=== PATIENT | female | born 1970 ===

== ENCOUNTER → 2019-12-06 10:59 | Outpatient (BNVA) | payer MEDICAID, SELFPAY | PROVIDERS: PCP Nurse Practitioner Family; Visit Provider Advanced Practice Midwife | DX: Z30.42 Encounter for surveillance of injectable contraceptive (principal) | CPT/HCPCS: 96372; 99211 ==

== ENCOUNTER 2020-02-24 17:39 | Emergency (ER) | payer MEDICAID, SELFPAY ==
[2020-02-24 18:55] VITALS: BP 155/79; PULSE 90; RESP 16; TEMP 36.8; O2SAT 100; BMI 30.2
[2020-02-24 19:11] LABS: Basophils Absolute Auto 0.1 X10*3/uL (0.0-0.2); Basophils Percent Auto 0.6 % (0-2); Eosinophils Absolute Auto 0.4 X10*3/uL (0.0-0.4); Eosinophils Percent Auto 4.4 % (0-4); Hematocrit 38.2 % (37-47); Hemoglobin 12.6 g/dl (12.0-16.0); Imm Gran Abs Auto 0.02 X10*3/uL (0.00-0.03); Imm Gran Pct Auto 0.3 % (0.0-0.4); Lymphocytes Percent Auto 25.1 % (20-40); Mean Corpuscular Hemoglobin 29.6 pg (27.0-33.0); Mean Corpuscular Volume 89.9 fL (80-98); Mean Platelet Volume 11.3 fL (9.4-12.3); Monocytes Absolute Auto 0.8 X10*3/uL (0.1-1.2); Monocytes Percent Auto 9.5 % (2-11); Neutrophils Absolute Auto 4.7 X10*3/uL (2.0-8.3); Neutrophils Percent Auto 60.1 % (45-73); Platelet Count 297 X10*3/uL (160-400); Red Blood Count 4.25 X10*6/uL (4.20-5.50); Red Cell Distribution Width 14.3 % (11.0-16.0); White Blood Count 7.9 X10*3/uL (4.8-10.8)
[2020-02-24 19:14] LABS: MANUAL DIFF FLAG NO
[2020-02-24 19:28] LABS: Glucose Urine UA NEG (NEG); Leukocyte Esterase Urine NEG (NEG); Nitrite Urine NEG (NEG); PH 5.5 (5.0-8.0); Specific Gravity - Urine >= 1.030 (1.005-1.025); Urine Blood NEG (NEG); Urine Ketones NEG (NEG); Urine Protein NEG (NEG-TRACE)
[2020-02-24 19:30] LABS: Appearance Urine CLEAR; Color Urine YELLOW
[2020-02-24 19:46] LABS: Alanine Aminotransferase 54 U/L (0-31); Albumin Level 4.3 g/dL (3.5-5.0); Alkaline Phosphatase 59 U/L (39-117); Anion Gap 11 (12-20); Aspartate Amino Transferase 28 U/L (5-31); Bilirubin Direct < 0.2 mg/dL (0.0-0.5); Bilirubin Total 0.2 mg/dL (0.0-1.0); Blood Urea Nitrogen 13 mg/dL (9-16); Calcium 8.9 mg/dL (8.4-10.2); Carbon Dioxide 26 mmol/L (22-29); Chloride 106 mmol/L (96-108); Estimated Glomerular Filt Rate > 60; Glucose Random 101 mg/dL (60-115); Lipase 23 U/L (8-78); Potassium 3.7 mmol/l (3.3-5.1); Sodium 139 mmol/L (135-145); Total Protein 7.5 g/dL (6.5-8.0)
--- NOTE | 2020-02-25 03:15 | ED.ABDPAIN ---
HPI - Abdominal Pain General Chief Complaint: Abdominal Pain Stated Complaint: Abdominal Pain Time Seen by Provider: 02/25/20 03:14 Source: patient Mode of arrival: ambulatory History of Present Illness HPI narrative: This is a 49-year-old female who states that she has been having epigastric discomfort that radiates into her chest and into her back for approximately 2 weeks and her physician has taken her off of ibuprofen/Motrin. She describes the pain as burning and is associated with nausea. She states that she recently stopped drinking soda and is taking omeprazole twice daily, but continues to take Naprosyn regularly. Related Data Allergies Allergy/AdvReac Type Severity Reaction Status Date / Time SEAFOOD Allergy Severe RASH, Uncoded 11/07/19 15:52 EPIPEN FISH Allergy Unknown anaphylaxis Uncoded 02/14/19 00:00 fish Allergy Unknown anaphylaxis Uncoded 01/15/19 00:00 Review of Systems Review of Systems Pertinent positives and negatives as stated in HPI 10 point review of systems otherwise negative. Physical Exam Vital Signs: Vital Signs: Last Vital Signs Temp 98.2 F 02/24/20 18:55 Pulse 90 02/24/20 18:55 Resp 16 02/24/20 18:55 BP 155/79 H 02/24/20 18:55 Pulse Ox 100 02/24/20 18:55 Body Mass Index 30.2 VITAL SIGNS: Reviewed. GENERAL: Well developed, well nourished, in no acute distress. NOSE: Nares patent bilateral OROPHARYNX: no oral lesions noted, posterior pharynx clear and non-erythematous without noted tonsillar enlargement/erythema/exudates NECK: Supple, no adenopathy LUNGS: Normal breath sounds. No adventitious sounds or accessory muscle use. SpO2<100> CARDIOVASCULAR: Regular rate and rhythm without noted murmurs, no JVD or lower extremity edema. ABDOMEN: Soft, mild tenderness and epigastrium without rebound, non-distended with bowel sounds. No rigidity. No guarding. No palpable masses or hernias noted NEUROLOGIC: Alert and oriented x 4. Course Course Course Narrative: This is a 49-year-old female with history and clinical presentation most consistent with gastritis and suspect underlying PUD or possible H pylori infection. There is no evidence pneumonia or cardiac etiologies. Of all investigations there is no evidence of infection, anemia, pancreatitis, or hepatobiliary disease. Patient was provided with a GI cocktail and endorses subjective improvement in discomfort. She was informed of all findings and will be discharged home in stable condition with a referral for GI. MDM - Abdominal Pain Lab Data Result diagrams: 02/24/20 19:04 02/24/20 19:04 Labs: Lab Results 02/24/20 02/24/20 02/24/20 Range/Units 19:04 19:04 19:16 WBC 7.9 (4.8-10.8) X10*3/uL RBC 4.25 (4.20-5.50) X10*6/uL Hgb 12.6 (12.0-16.0) g/dl Hct 38.2 (37-47) % MCV 89.9 (80-98) fL MCH 29.6 (27.0-33.0) pg MCHC 33.0 (31.0-35.0) g/dl RDW 14.3 (11.0-16.0) % Plt Count 297 (160-400) X10*3/uL MPV 11.3 (9.4-12.3) fL Immature Gran % (Auto) 0.3 (0.0-0.4) % Neut % (Auto) 60.1 (45-73) % Lymph % (Auto) 25.1 (20-40) % [place] % (Auto) 9.5 (2-11) % Eos % (Auto) 4.4 H (0-4) % Baso % (Auto) 0.6 (0-2) % Lymph # (Auto) 2.0 (1.2-4.9) X10*3/uL [place] # (Auto) 0.8 (0.1-1.2) X10*3/uL Eos # (Auto) 0.4 (0.0-0.4) X10*3/uL Baso # (Auto) 0.1 (0.0-0.2) X10*3/uL Abs Immat Gran (auto) 0.02 (0.00-0.03) X10*3/uL Absolute Neuts (auto) 4.7 (2.0-8.3) X10*3/uL Absolute Nucleated RBC 0.000 (0.0-0.012) X10*3/uL Nucleated RBC % (auto) 0.0 (0.0-0.2) /100WBC Sodium 139 (135-145) mmol/L Potassium 3.7 (3.3-5.1) mmol/l Chloride 106 (96-108) mmol/L Carbon Dioxide 26 (22-29) mmol/L Anion Gap 11 L (12-20) BUN 13 (9-16) mg/dL Creatinine 0.74 (0.5-1.4) mg/dL Estim Creat Clear Calc 87.0 Estimated GFR > 60 Random Glucose 101 (60-115) mg/dL Calcium 8.9 (8.4-10.2) mg/dL Total Bilirubin 0.2 (0.0-1.0) mg/dL Direct Bilirubin < 0.2 (0.0-0.5) mg/dL AST 28 (5-31) U/L ALT 54 H (0-31) U/L Alkaline Phosphatase 59 (39-117) U/L Total Protein 7.5 (6.5-8.0) g/dL Albumin 4.3 (3.5-5.0) g/dL Lipase 23 (8-78) U/L Urine Color YELLOW Urine Appearance CLEAR Urine pH 5.5 (5.0-8.0) Ur Specific [place] >= 1.030 H (1.005-1.025) Urine Protein NEG (NEG-TRACE) MG/DL Urine Glucose (UA) NEG (NEG) MG/DL Urine Ketones NEG (NEG) MG/DL Urine Blood NEG (NEG) Urine Nitrite NEG (NEG) Ur Leukocyte Esterase NEG (NEG) Discharge Plan Discharge Clinical Impression: Gastritis Qualifiers: Gastritis type: other gastritis Chronicity: chronic Gastritis bleeding: without bleeding Qualified Code(s): K29.50 - Unspecified chronic gastritis without bleeding Patient Disposition: Home, Self-Care Instructions: Gastritis (ED), Diet for Stomach Ulcers and Gastritis (ED) Additional Instructions: 1. Evite toda la cafe?na y las bebidas carbonatadas, deje de jj Naprosyn / ibuprofen / Motrin / Aleve. 2. Juanjose un seguimiento llamando a la oficina del especialista para evaluar bajwa condici?n estomacal david 4 a?os m?s. 3. Contin?e tomando omeprazol seg?n lo prescrito. 4. Contin?e tomando Mylanta de venta keshia amanuel se indica en el empaque externo antes de cada comida. 5. Juanjose un seguimiento con bajwa proveedor de atenci?n primaria. Referrals: Jordyn Mary NP [Primary Care Provider] - 2 days (Re-eval for Gastritis versus PUD) Jessica Barrera MD [Physician] - 2 days (Please evaluate for minimal improvement on twice daily omeprazole.) Print Language: Sammarinese [facility] Past Medical History Source: nursing notes reviewed Medical History GERD (gastroesophageal reflux disease) Social History Social History Advance Directives: No
[2020-02-25] MEDS: Magnesium Hydrox/Alum Hydrox 30 ML ORAL.SUSP PO (04:26)
[2020-02-25] MEDS: Lidocaine HCl Viscous 2 % 15 ML SOLUTION 10 ML MUCOUS MEM (04:26)
== END 2020-02-25 07:40 | disposition home or self-care (01) ==
PROVIDERS: Emergency Provider Student in an Organized Health Care Education/Training Program; PCP Nurse Practitioner Family
DX: K29.50 Unspecified chronic gastritis without bleeding (principal); K21.9 Gastro-esophageal reflux disease without esophagitis
CPT/HCPCS: 36415; 80048; 80076; 81003; 83690; 85025; 99282; 99283

== ENCOUNTER 2020-02-27 10:05 | Outpatient (REF) | payer MEDICAID, SELFPAY ==
--- NOTE | 2020-02-27 10:10 | XR_ITS ---
EXAMINATION: XR CHEST CLINICAL INFORMATION: Sequelae of infectious and metastatic disease. COMPARISON: None TECHNIQUE: 2 views of the chest were obtained. FINDINGS: The lungs are well-expanded and clear. The heart size and pulmonary vascularity is normal. No gross bony abnormality seen. XR/XR chest 2V IMPRESSION: Unremarkable chest exam
== END 2020-02-27 10:06 | disposition home or self-care (01) ==
LOC: HO.XRAY 10:05
PROVIDERS: PCP Nurse Practitioner Family; Visit Provider Nurse Practitioner Family
DX: B94.8 Sequelae of other specified infectious and parasitic diseases (principal)
CPT/HCPCS: 71046; 96372; 99211; J1050

== ENCOUNTER 2020-02-27 20:01 | Emergency (ER) | payer MEDICAID, SELFPAY ==
[2020-02-27 21:28] VITALS: BP 160/74; PULSE 100; RESP 18; TEMP 36.9; O2SAT 98; BMI 28.4
--- NOTE | 2020-02-27 22:28 | ED.ABDPAIN ---
HPI - Abdominal Pain General Chief Complaint: Abdominal Pain Stated Complaint: BODY ACHES/ABD PAIN Time Seen by Provider: 02/27/20 22:27 Source: patient Mode of arrival: ambulatory Limitations: no limitations History of Present Illness HPI narrative: headaches, chest heaviness, body aches MD elicited complaint: other (hedaches, chest heaviness, body aches) Pertinent past history: gastritis Onset (ago): day(s) (3) Pain Consistency: constant Location: none Quality: aching Radiation: none Migration to: no migration Exacerbating factors: other (patient is very stressed out and sad at the recent loss of her father) Relieving factors: nothing Context: other (father just ) Treatments prior to arrival: other (tylenol) Related Data Previous Rx's Medication Instructions Recorded braldczugi-cxxzmpdrzprsn-agqf 1 tab PO Q6H PRN #20 tab 02/28/20 lorazepam [Ativan] 0.5 mg PO BID PRN #10 tab 02/28/20 Allergies Allergy/AdvReac Type Severity Reaction Status Date / Time SEAFOOD Allergy Severe RASH, Uncoded 11/07/19 15:52 EPIPEN FISH Allergy Unknown anaphylaxis Uncoded 02/14/19 00:00 fish Allergy Unknown anaphylaxis Uncoded 01/15/19 00:00 Review of Systems Review of Systems Constitutional : No Weight loss, No Fever, No Chills ENT/Mouth : No sore throat, No Rhinorrhea Eyes: No Eye Pain, No Swelling Cardiovascular : pos Chest Pain, no SOB, no Dyspnea on Exertion, No Orthopnea, No Edema, No Palpitations Respiratory : No Cough, No Sputum Gastrointestinal : pos Nausea, No Vomiting, No Diarrhea, No abdominal Pain, No Hematochezia, No Melena Genitourinary : No Dysuria, No Urinary Frequency Musculoskeletal : No joint pain, No Myalgias, No Joint Swelling Skin : No Skin Lesions, No rash Neuro : No Weakness, No Numbness, No Dizziness, pos Headache Psych : No Anxiety/Panic, No Depression Heme/Lymph: No Bruising, No Lymphadenopathy Endocrine : No Polyuria, No Polydipsia All other systems reviewed and are negative Physical Exam Vital Signs: Vital Signs: Last Vital Signs Temp 98.4 F 02/27/20 21:28 Pulse 83 02/27/20 22:37 Resp 16 02/27/20 22:37 BP 147/83 H 02/27/20 22:37 Pulse Ox 97 02/27/20 22:37 Body Mass Index 28.4 Appearance: Alert. Oriented X3. No acute distress. Anxious, tearful Eyes: Pupils equal, round and reactive to light. ENT: Pharynx normal. Neck: Normal inspection. Neck supple. CVS: Normal heart rate and rhythm. Pulses normal. Respiratory: No respiratory distress. Breath sounds normal. Abdomen: Soft and non-tender. Skin: Skin warm and dry. Normal skin color. Normal skin turgor. Extremities: No lower extremity edema. No calf ttp Neuro: Oriented X 3. No motor deficit. No sensory deficit. Course Course Course Narrative: positive for COVID 01/29, negative 02/11 per her, today positive with some body aches but not toxic no hypoxia or tachycardia she could be a chronic carrier either way will send her home with treatments for her anxiety and headaches, normal O2 sats MDM - Abdominal Pain MDM Narrative Medical decision making narrative: 49 yo female with gastritis on omeprazole BID doing better but c/o headache that radiates down neck into chest for the past few days, seems atypical for ACS, no PE risk factors and not pleuritic, she is very anxious due to the recent loss of her father, she does have body aches will obtain basic labs, EKG, troponin x 1, COVID swab as well as tylenol and ativan I suspect her issues are related to tension headaches Lab Data Result diagrams: 02/27/20 23:02 02/27/20 23:02 Labs: Lab Results 02/27/20 02/27/20 02/27/20 Range/Units 23:02 23:02 23:02 WBC 9.4 (4.8-10.8) X10*3/uL RBC 4.09 L (4.20-5.50) X10*6/uL Hgb 12.3 (12.0-16.0) g/dl Hct 37.1 (37-47) % MCV 90.7 (80-98) fL MCH 30.1 (27.0-33.0) pg MCHC 33.2 (31.0-35.0) g/dl RDW 14.3 (11.0-16.0) % Plt Count 299 (160-400) X10*3/uL MPV 11.0 (9.4-12.3) fL Immature Gran % (Auto) 0.2 (0.0-0.4) % Neut % (Auto) 60.0 (45-73) % Lymph % (Auto) 25.7 (20-40) % [place] % (Auto) 8.8 (2-11) % Eos % (Auto) 4.6 H (0-4) % Baso % (Auto) 0.7 (0-2) % Lymph # (Auto) 2.4 (1.2-4.9) X10*3/uL [place] # (Auto) 0.8 (0.1-1.2) X10*3/uL Eos # (Auto) 0.4 (0.0-0.4) X10*3/uL Baso # (Auto) 0.1 (0.0-0.2) X10*3/uL Abs Immat Gran (auto) 0.02 (0.00-0.03) X10*3/uL Absolute Neuts (auto) 5.7 (2.0-8.3) X10*3/uL Absolute Nucleated RBC 0.000 (0.0-0.012) X10*3/uL Nucleated RBC % (auto) 0.0 (0.0-0.2) /100WBC Sodium 139 (135-145) mmol/L Potassium 3.6 (3.3-5.1) mmol/l Chloride 107 (96-108) mmol/L Carbon Dioxide 23 (22-29) mmol/L Anion Gap 13 (12-20) BUN 10 (9-16) mg/dL Creatinine 0.71 (0.5-1.4) mg/dL Estim Creat Clear Calc 102.3 Estimated GFR > 60 Random Glucose 118 H (60-115) mg/dL Calcium 8.4 (8.4-10.2) mg/dL Magnesium 2.3 (1.6-2.6) mg/dL Total Bilirubin 0.2 (0.0-1.0) mg/dL Direct Bilirubin < 0.2 (0.0-0.5) mg/dL AST 17 (5-31) U/L ALT 45 H (0-31) U/L Alkaline Phosphatase 55 (39-117) U/L Total Protein 7.4 (6.5-8.0) g/dL Albumin 4.2 (3.5-5.0) g/dL Lipase 19 (8-78) U/L Coronavirus (PCR) POSITIVE A (Negative) Influenza Type A (PCR) NEGATIVE (Negative) Influenza Type B (PCR) NEGATIVE (Negative) RSV RNA Qual (PCR) NEGATIVE (Negative) ECG Data Attestation: I personally reviewed and interpreted this ECG as follows: ECG interpretation date: 02/27/20 ECG interpretation time: 23:23 Interpretation: Rate: 88 Rhythm: NSR [place]: normal Normal P waves. Normal JORGE. Normal QRS complex. ST T wave : normal, no SIDDHARTHA qTC: normal prior studies: no acute ischemia The study has been interpreted contemporaneously by me. . Discharge Plan Discharge Clinical Impression: Anxiety Chest pain Qualifiers: Chest pain type: unspecified Qualified Code(s): R07.9 - Chest pain, unspecified Acute tension headache Qualifiers: Intractability: not intractable Qualified Code(s): G44.209 - Tension-type headache, unspecified, not intractable Patient Disposition: Home, Self-Care Instructions: Tension Headache (ED), Anxiety (ED) Additional Instructions: return to ED for any worsening symptoms or concerns YOUR COVID TEST WAS POSITIVE AGAIN THIS COULD MEAN THAT YOUR ARE A CHRONIC CARRIER AND ASYMPTOMATIC OR YOUR TEST FROM 02/11 WAS A FALSE NEGATIVE, YOU SHOULD FOLLOW UP WITH YOUR EMPLOYER FOR NEED FOR REPEAT TESTING Prescriptions: New lorazepam [Ativan] 0.5 mg tablet 0.5 mg PO BID PRN (Reason: anxiety) Qty: 10 RF: 0 uocldzbqua-iebdbfwhuuddf-bthh 50-325-40 mg tablet 1 tab PO Q6H PRN (Reason: pain) Qty: 20 RF: 0 No Action medroxyprogesterone [Depo-Provera] 150 mg/mL syringe 150 mg IM ONCE Qty: 1 RF: 0 Referrals: Physician,Unknown [Primary Care Provider] - 2 days (IF NOT BETTER) Stand Alone Forms: Work/School Release [facility] Past Medical History Attestation statement: The following information was validated with the patient. Medical History GERD (gastroesophageal reflux disease) Social History Social History (Updated 02/27/20 @ 22:55 by Viviana Azul DO) Smoking Status: Never smoker Advance Directives: No
[2020-02-27 22:37] VITALS: BP 147/83; PULSE 83; RESP 16; O2SAT 97
--- NOTE | 2020-02-27 22:38 | PC.NURSE ---
MD at bedside for primary eval. Pt aware of plan to medicate for pain.
--- NOTE | 2020-02-27 22:40 | ECG_ITS ---
Test Reason : CP Blood Pressure : / mmHG Vent. Rate : 088 BPM Atrial Rate : 088 BPM P-R Int : 140 ms QRS Dur : 080 ms QT Int : 370 ms P-R-T Axes : 072 022 025 degrees QTc Int : 447 ms Normal sinus rhythm Normal ECG When compared with ECG of 05-JUN-2019 18:07, No significant change was found Referred By: Viviana Azul Electronically Signed By:Joe Bergman
--- NOTE | 2020-02-27 22:41 | XR_ITS ---
EXAMINATION: XR CHEST CLINICAL INFORMATION: Chest pain COMPARISON: Chest x-ray 02/27/2020 TECHNIQUE: Frontal portable view of the chest was obtained. 2245 hours FINDINGS: No significant abnormality is noted involving the heart, lungs, mediastinum, bony thorax or soft tissues. XR/XR chest 1V IMPRESSION: Unremarkable examination.
--- NOTE | 2020-02-27 22:48 | PC.NURSE ---
CXR at bedside.
[2020-02-27] MEDS: Acetaminophen 325 MG TABLET 650 MG PO (22:54)
[2020-02-27] MEDS: LORazepam 1 MG TABLET PO (22:54)
[2020-02-27 23:15] LABS: Basophils Absolute Auto 0.1 X10*3/uL (0.0-0.2); Basophils Percent Auto 0.7 % (0-2); Eosinophils Absolute Auto 0.4 X10*3/uL (0.0-0.4); Eosinophils Percent Auto 4.6 % (0-4); Hematocrit 37.1 % (37-47); Hemoglobin 12.3 g/dl (12.0-16.0); Imm Gran Abs Auto 0.02 X10*3/uL (0.00-0.03); Imm Gran Pct Auto 0.2 % (0.0-0.4); Lymphocytes Absolute Auto 2.4 X10*3/uL (1.2-4.9); Lymphocytes Percent Auto 25.7 % (20-40); MANUAL DIFF FLAG NO; Mean Corpuscular HGB Conc 33.2 g/dl (31.0-35.0); Mean Corpuscular Hemoglobin 30.1 pg (27.0-33.0); Mean Corpuscular Volume 90.7 fL (80-98); Monocytes Absolute Auto 0.8 X10*3/uL (0.1-1.2); Monocytes Percent Auto 8.8 % (2-11); Neutrophils Absolute Auto 5.7 X10*3/uL (2.0-8.3); Platelet Count 299 X10*3/uL (160-400); Red Blood Count 4.09 X10*6/uL (4.20-5.50); Red Cell Distribution Width 14.3 % (11.0-16.0); White Blood Count 9.4 X10*3/uL (4.8-10.8)
--- NOTE | 2020-02-27 23:22 | PC.NURSE ---
EKG obtained by this RN.
[2020-02-27 23:40] LABS: Alanine Aminotransferase 45 U/L (0-31); Albumin Level 4.2 g/dL (3.5-5.0); Alkaline Phosphatase 55 U/L (39-117); Anion Gap 13 (12-20); Aspartate Amino Transferase 17 U/L (5-31); Bilirubin Direct < 0.2 mg/dL (0.0-0.5); Bilirubin Total 0.2 mg/dL (0.0-1.0); Blood Urea Nitrogen 10 mg/dL (9-16); Calcium 8.4 mg/dL (8.4-10.2); Carbon Dioxide 23 mmol/L (22-29); Chloride 107 mmol/L (96-108); Creatinine Clr Calc Pharmacy 102.3; Estimated Glomerular Filt Rate > 60; Glucose Random 118 mg/dL (60-115); Lipase 19 U/L (8-78); Magnesium 2.3 mg/dL (1.6-2.6); Potassium 3.6 mmol/l (3.3-5.1); Sodium 139 mmol/L (135-145); Total Protein 7.4 g/dL (6.5-8.0)
[2020-02-27 23:52] LABS: Influenza A PCR NEGATIVE (Negative); Influenza B PCR NEGATIVE (Negative); Resp Syncy Virus RNA Qual PCR NEGATIVE (Negative)
[2020-02-27 23:57] LABS: SARS COV2 PCR INHOUSE POSITIVE (Negative)
--- NOTE | 2020-02-28 | PC.NURSE ---
MD at bedside discussing Covid + result and plan to DC home.
--- NOTE | 2020-02-28 00:28 | PC.NURSE ---
Pt ambulating to the bathroom with a smith/steady gait.
[2020-02-28 00:32] LABS: Troponin-I High Sensitivity 3.6 ng/L (<3.5-17.0)
[2020-02-28 00:43] VITALS: BP 159/90; PULSE 99; RESP 20; O2SAT 99
--- NOTE | 2020-02-28 00:49 | PC.NURSE ---
This RN discussing plan of care with pts daughter concerning Covid positive result, plan for quarantine and follow up testing. IV removed, VSS. Pt awaiting ride home.
== END 2020-02-28 01:01 | disposition home or self-care (01) ==
PROVIDERS: Emergency Provider Emergency Medicine
DX: U07.1 COVID-19 (principal); R07.9 Chest pain, unspecified; G44.209 Tension-type headache, unspecified, not intractable; F41.9 Anxiety disorder, unspecified
CPT/HCPCS: 0241U; 36415; 71045; 80048; 80076; 83690; 83735; 84484; 85025; 93005; 99284

== ENCOUNTER 2020-03-04 08:33 | Outpatient (REF) | payer MEDICAID, SELFPAY ==
--- NOTE | 2020-03-04 | US_ITS ---
EXAMINATION: US ABDOMEN COMPLETE CLINICAL INFORMATION: Abdominal pain. COMPARISON: Renal ultrasound 09/21/2018. KUB 09/11/2018. TECHNIQUE: Real-time imaging of the abdominal viscera. FINDINGS: PANCREAS: The head and the body of the pancreas is homogeneous in echotexture. The tail is obscured by overlying gas. ABDOMINAL AORTA: The proximal, mid, and distal segments are normal in caliber. INFERIOR VENA CAVA: Visualized portions are normal. LIVER: The liver is normal size, shape and contour. There is diffuse increased echogenicity with echogenic foci in the right lower lobe, likely small calcifications. The largest echogenic area measures 0.5 x 0.4 x 0.7 cm. No focal hepatic lesion. There is no intrahepatic biliary duct dilatation seen. GALLBLADDER: The gallbladder is physiologically distended without evidence of stones, sludge, wall thickening or pericholecystic fluid. There is a small echogenic nonmobile polyp along the anterior gallbladder wall measuring 0.3 cm. COMMON BILE DUCT: Normal in caliber measuring 0.5 cm in diameter. RIGHT KIDNEY: No hydronephrosis or renal calculi. The kidney measures 12.2 cm in maximum dimension. There are several cysts anechoic cyst with echogenic calcifications. A lower pole cyst measures 0.9 x 0.5 a 0.7 cm with posterior calcification. A second lower pole anechoic cyst with medial calcification measures 1.1 x 0.9 x 1.0 cm.. LEFT KIDNEY: No hydronephrosis or renal calculi. The kidney measures 10.6 cm in maximum dimension. The anechoic cyst in the midpole measuring 1.5 x 0.9 x 1.3 cm. SPLEEN: The spleen measures 8.8 cm in maximum dimension. Numerous hyperechoic areas seen with calcifications. FREE FLUID: None. US/US abdomen complete IMPRESSION: Increased hepatic echogenicity without focal lesion. There are echogenic calcifications in the right lower lobe with twinkle artifact. The largest calcification measures 0.7 cm. Bilateral renal cysts. Some of the cysts are complex with adjacent wall calcification. Solitary gallbladder polyp but no echogenic gallstones or wall thickening. There is numerous echogenic calcification seen in the spleen, left kidney, right kidney, and pelvis.
== END 2020-03-04 08:34 | disposition home or self-care (01) ==
LOC: HO.US 08:33
PROVIDERS: Visit Provider Nurse Practitioner Family
DX: R10.9 Unspecified abdominal pain (principal)
CPT/HCPCS: 76700

== ENCOUNTER 2020-03-05 12:47 | Outpatient (REF) | payer MEDICAID, SELFPAY ==
--- NOTE | 2020-03-05 12:50 | CT_ITS ---
EXAMINATION: CT HEAD WITHOUT CONTRAST CLINICAL INFORMATION: Migraines. COMPARISON: Head CT from 06/05/2019. TECHNIQUE: Contiguous axial imaging was performed from the skull base to vertex without intravenous administration of contrast. This CT examination was performed using dose optimization techniques as appropriate, variously including the following: *Automated exposure control *Adjustment of mA and/or kV according to patient size (this includes techniques or standardized protocols for targeted exams where dose is matched to indication/reason for exam; i.e. extremities or head) *Use of iterative reconstruction technique DLP: 730 mGy-cm FINDINGS: There is no evidence of acute intracranial hemorrhage or territorial infarction. No abnormal mass effect or midline shift is seen. [place] to white matter differentiation is well preserved. No extra-axial fluid collections are identified. The ventricles are normal in size. There is no abnormal attenuation within the brain parenchyma. The osseous structures and soft tissues are normal. The mastoid air cells and visualized portions of the paranasal sinuses are well aerated. CT/CT head/brain wo con IMPRESSION: No acute intracranial pathology.
== END 2020-03-05 12:48 | disposition home or self-care (01) ==
LOC: HO.CT 12:47
PROVIDERS: Visit Provider Psychiatry & Neurology Neurology
DX: G43.709 Chronic migraine without aura, not intractable, without status migrainosus (principal)
CPT/HCPCS: 70450

== ENCOUNTER → 2020-03-19 09:20 | Outpatient (BNVA) | payer MEDICAID, SELFPAY | PROVIDERS: PCP Nurse Practitioner Family; Visit Provider Internal Medicine | DX: U07.1 COVID-19 (principal); R06.00 Dyspnea, unspecified; R07.9 Chest pain, unspecified | CPT/HCPCS: 99202 ==

== ENCOUNTER → 2020-03-23 12:27 | Outpatient (BNVA) | payer MEDICAID, SELFPAY | PROVIDERS: PCP Nurse Practitioner Family; Visit Provider Internal Medicine Cardiovascular Disease | DX: R07.9 Chest pain, unspecified (principal); R06.00 Dyspnea, unspecified | CPT/HCPCS: 93005; 99212 ==

== ENCOUNTER 2020-04-01 13:37 | Outpatient (REF) | payer MEDICAID, SELFPAY ==
--- NOTE | 2020-04-01 15:00 | PFT_ITS ---
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 SPIROMETRY: The FEV1 to FVC of 90% with an FEV1 of 2.58 L, which 98% predicted, and FVC of 2.88 L, which is 89% predicted. No significant response to bronchodilators noted. Maximum voluntary ventilation of 102% predicted. LUNG VOLUMES: Total lung capacity 104% predicted with a residual volume of 121% of predicted. DIFFUSION CAPACITY: DLCO 81% of predicted. COMPARISONS: None. INTERPRETATION: No obstructive nor restrictive ventilatory defects were identified. Normal maximum voluntary ventilation noted. No significant response to bronchodilators noted. The patient has normal total lung capacity, however, has low-normal diffusion capacity. Therefore, interstitial lung conditions cannot be ruled out, especially [id number]. Clinical correlation warranted. MD YESICA Potter/FIGUEROA / [id number]
== END 2020-04-01 13:38 | disposition home or self-care (01) ==
LOC: HO.RESP 13:37
PROVIDERS: Visit Provider Internal Medicine
DX: R06.00 Dyspnea, unspecified (principal); U07.1 COVID-19
CPT/HCPCS: 94010; 99212

== ENCOUNTER → 2020-04-02 14:53 | Outpatient (REF) | payer MEDICAID, SELFPAY ==
--- NOTE | 2020-04-02 14:55 | CA_ITS ---
Transthoracic Echocardiogram Patient (Last, First, Middle): Isis Travis, Gender: Female Date of : 1970 Age: 49 Procedure Date: 04/02/2020 Procedure Type: Transthoracic Echocardiogram Location: OP Height: 157.48 cm Weight: 68.04 kg BSA: 1.69 m2 Heart Rate: bpm BP: 128 / 60 mmHg Sharepoint Specialist: MARCELINO Evans MD: Joe Bergman MD Quality Assurance Intern: Marcin Blas MD Symptoms: R06.00 - Dyspnea, unspecified Study Quality: Fair ECG Rhythm: Sinus Conclusions: - Essentially normal study Findings Left Ventricle Normal left ventricular size, thickness, and systolic function. The visually estimated ejection fraction is between 55-60%. Diastolic function is normal for age. Right Ventricle Normal right ventricular cavity size and systolic function. Atria Both atria are normal in size. Interatrial shunt cannot be excluded. Aortic Valve The aortic valve structure and function is likely normal. There is no aortic valve stenosis. There is no aortic valve regurgitation. Mitral Valve Normal mitral valve structure and function. There is no mitral valve regurgitation. There is no mitral valve stenosis. Pulmonic Valve The pulmonic valve was not well visualized. Tricuspid Valve There is trace tricuspid valve regurgitation. The right ventricular systolic pressure is normal. The right ventricular systolic pressure is 12 mmHg. There is no evidence of pulmonary hypertension. Great Vessels All visible segments of the aorta are normal in size. The pulmonary artery was not well visualized. Venous The inferior vena cava is normal in size and collapses greater than 50% with inspiration. Pericardium/Pleural There is no evidence of pericardial effusion. Prior Study Comparison No prior study available for comparison. Measurements 2D Linear Measurements IVSd: 0.86 0.6-0.9/0.6-1.0 cm LVIDd: 4.55 3.9-5.3/4.2-5.9 cm LVIDd Index: 2.69 2.4-3.2/2.2-3.1 cm/m2 LVIDs: 2.95 2.0-3.6 cm LVPWd: 0.97 0.7-1.1 cm Ao Root: 2.80 2.1-3.5 cm LA Diam: 3.00 2.7-3.8/3.0-4.0 cm LAIDs Index: 1.78 1.5-2.3 cm/m2 LV Mass: 172.75 67-162/88-224 g LV Mass Index: 102.22 43-95/49-115 g/m2 LVOT Diam: 2.00 3.0+(-)1.3 cm 2D Systolic Function EF 4C: 56.80 >55% EF 2C: 53.90 >55% EF BiP: 56.00 >55% Mitral Valve MV Pk E: 0.77 MV PK A: 0.86 MV Decel Time: 171.00 E/A: 0.90 E'Lateral: 8.27 E'Medial: 9.68 E/E' Med: 8.00 E/E' Lat: 9.30 PHT: 50.00 MVA PHT: 4.40 Decel Glenn: 4.51 Aortic Valve AoV Pk Jose Antonio: 1.51 AoV Mn Jose Antonio: 0.92 AoV VTI: 0.25 AoV Pk Grad: 9.00 Aov Mn Grad: 4.00 GRAY Cont.VTI: 2.08 LVOT LVOT Pk Jose Antonio: 1.04 LVOT Mn Jose Antonio: 0.65 LVOT VTI: 0.17 LVOT Pk Grad: 4.00 LVOT Mn Grad: 2.00 LVOT Diam: 2.00 LVOT Area: 3.14 Diastolic Function MV Pk E: 0.77 MV Pk A: 0.86 E/A: 0.90 E'Medial: 9.68 E/E' Med: 8.00 E' Laterial: 8.27 E/E' Lat: 9.30 Tricuspid Valve TR Pk Jose Antonio: 1.51 TR Pk Grad: 9.00 RA Press: 3.00 RVSP: 12.00 Great Vessels Aorta Ao Root-2D: 2.80 2.0-3.7 cm Ao Asc: 2.80 2.1-3.4 cm Ao Arch: 2.60 Updated in Other Vendor System with Status of Final Marcin Blas MD electronically signed on 04/02/2020 5:58:19 PM with status of Final
== END ==
LOC: HO.CARD 14:53
PROVIDERS: Visit Provider Internal Medicine Cardiovascular Disease
DX: R06.00 Dyspnea, unspecified (principal)
CPT/HCPCS: 93306

== ENCOUNTER → 2020-05-14 10:24 | Outpatient (BNVA) | payer MEDICAID, SELFPAY | PROVIDERS: PCP Internal Medicine; Visit Provider Nurse Practitioner Family | DX: R07.9 Chest pain, unspecified (principal); R00.2 Palpitations; U07.1 COVID-19 | CPT/HCPCS: 99212 ==

== ENCOUNTER → 2020-05-21 10:19 | Outpatient (REF) | payer MEDICAID, SELFPAY ==
--- NOTE | 2020-05-21 14:10 | ECG_ITS ---
Hook-up date: 2020-05-21 10:56:00 Duration: 27:37:00 Test Indications: PALPITATIONS Medications: [id number] QRS complexes 15 Ventricular ectopics which represent <1 % of total QRS comp. 24 Supraventricular ectopics which represent <1 % of total QRS comp. * Paced QRS complexs which represent % of total QRS comp. VENTRICULAR ECTOPY 9 Isolated 0 Bigeminal Cycles 3 Couplets 0 Runs 0 Beats in Runs * Beats LONGEST at * BPM at :: -- * Beats FASTEST at * BPM at :: -- SUPRAVENTRICULAR ECTOPY 28 Isolated 0 Couplets 1 Runs 3 Beats in Runs 3 Beats LONGEST at 148 BPM at 11:49:17 2020-05-21 3 Beats FASTEST at 148 BPM at 11:49:17 2020-05-21 HEART RATES 59 MIN at 01:29:47 2020-05-22 90 AVG 135 MAX at 08:45:24 2020-05-22 LONGEST RR 1.0880 secs at 01:31:42 2020-05-22 S-T LEVELS Channel 1 - 128 mm at 10:56:00 2020-05-21 - 128 mm at 10:56:00 2020-05-21 Channel 2 - 128 mm at 10:56:00 2020-05-21 - 128 mm at 10:56:00 2020-05-21 Channel 3 - 128 mm at 03:01:51 -- - 128 mm at 03:01:51 Underlying rhythm is sinus; Average ventricular rate 90/min; Rare supraventricular ectopy with very brief runs; Rare ventricular ectopy; some couplets; No sustained arrhythmias; No symptoms mentioned in patient diary. Referred By: Carol Newman Overread By: SADA FLORES
== END ==
LOC: HO.CARD 10:19
PROVIDERS: PCP Internal Medicine; Visit Provider Nurse Practitioner Family
DX: R00.2 Palpitations (principal)
CPT/HCPCS: 93226

== ENCOUNTER 2020-05-26 14:02 | Outpatient (REF) | payer MEDICAID, SELFPAY ==
[2020-05-27 11:33] LABS: CT PCR NOT DETECTED (Not Detect.); NG PCR NOT DETECTED (Not Detect.)
[2020-05-27 11:38] LABS: BV Int Neg Control Negative (Negative); BV Int Pos Control Positive (Positive)
[2020-05-28 22:17] LABS: HPV mRNA E6/E7 rflx Not Detected (Not Detected)
== END 2020-05-26 14:03 | disposition home or self-care (01) ==
LOC: HO.LAB 14:02
PROVIDERS: Visit Provider Advanced Practice Midwife
DX: Z01.419 Encounter for gynecological examination (general) (routine) without abnormal findings (principal); B37.3 Candidiasis of vulva and vagina; Z20.2 Contact with and (suspected) exposure to infections with a predominantly sexual mode of transmission; Z91.013 Allergy to seafood; Z86.16 Personal history of COVID-19; Z79.899 Other long term (current) drug therapy
CPT/HCPCS: 87480; 87491; 87510; 87591; 87624; 87660; 88142

== ENCOUNTER → 2020-05-27 08:53 | Outpatient (BNVA) | payer MEDICAID, SELFPAY | PROVIDERS: Visit Provider Advanced Practice Midwife | DX: Z30.42 Encounter for surveillance of injectable contraceptive (principal) | CPT/HCPCS: 96372; 99211; J1050 ==

== ENCOUNTER → 2020-05-28 10:10 | Outpatient (BNVA) | payer MEDICAID, SELFPAY | PROVIDERS: PCP Internal Medicine; Visit Provider Physician Assistant ==

== ENCOUNTER → 2020-06-09 11:46 | Outpatient (BNVA) | payer MEDICAID, SELFPAY | PROVIDERS: Visit Provider Nurse Practitioner Family ==

== ENCOUNTER 2020-06-16 12:55 | Outpatient (REF) | payer MEDICAID, SELFPAY ==
--- NOTE | ~2020-06-16 | US_ITS ---
EXAMINATION: US VENOUS ULTRASOUND WITH DOPPLER LOWER EXTREMITY, LEFT CLINICAL INFORMATION: Swelling COMPARISON: None TECHNIQUE: Ultrasound of the deep veins is performed from the hip to the calf with compression sonography and color and pulse Doppler assessment. Spectral analysis with color-flow imaging is performed. FINDINGS: There is normal venous compression and respiratory variation and augmented flow. The visualized common femoral vein, superficial femoral vein, profunda femoral vein, popliteal vein, and the trifurcation region shows no evidence of deep venous thrombosis. There is no significant popliteal fossa cyst. If the patient's symptoms persist, followup ultrasound in 5 days 7 days might be of value to exclude proximal propagation from a non-visualized calf vein. US/US venous duplex LE LT IMPRESSION: No DVT demonstrated in the left lower extremity.
== END 2020-06-16 12:56 | disposition home or self-care (01) ==
LOC: HO.HMGCX 12:55
PROVIDERS: Visit Provider Internal Medicine
DX: R60.0 Localized edema (principal); R11.0 Nausea; K21.9 Gastro-esophageal reflux disease without esophagitis; R10.9 Unspecified abdominal pain; Z86.16 Personal history of COVID-19
CPT/HCPCS: 93971

== ENCOUNTER 2020-06-17 09:41 | Outpatient (REF) | payer MEDICAID, SELFPAY ==
--- NOTE | ~2020-06-17 | XR_ITS ---
EXAMINATION: XR CERVICAL SPINE CLINICAL INFORMATION: Chronic tension headache COMPARISON: None TECHNIQUE: 3 views of the cervical spine were obtained. FINDINGS: Bone alignment is normal. No fracture or dislocation is seen. There is evidence of degenerative cervical spondylosis at C3-C4 C4-C5 and C5-C6. Disc spaces are normal. Prevertebral soft tissues are normal. XR/XR cervical spine 3V IMPRESSION: Mild degenerative changes.
--- NOTE | ~2020-06-17 | XR_ITS ---
EXAMINATION: XR CHEST CLINICAL INFORMATION: Pain COMPARISON: Previous chest x-ray February 2020 TECHNIQUE: 2 views of the chest were obtained. FINDINGS: No significant abnormality is noted involving the heart, lungs, mediastinum, bony thorax or soft tissues. XR/XR chest 2V IMPRESSION: Unremarkable examination.
[2020-06-17 11:03] LABS: Hematocrit 37.1 % (37-47); Hemoglobin 12.2 g/dl (12.0-16.0); Mean Corpuscular HGB Conc 32.9 g/dl (31.0-35.0); Mean Corpuscular Hemoglobin 30.3 pg (27.0-33.0); Mean Corpuscular Volume 92.1 fL (80-98); Mean Platelet Volume 10.8 fL (9.4-12.3); Platelet Count 286 X10*3/uL (160-400); Red Blood Count 4.03 X10*6/uL (4.20-5.50); Red Cell Distribution Width 13.2 % (11.0-16.0)
[2020-06-17 11:41] LABS: Alanine Aminotransferase 16 U/L (0-31); Alkaline Phosphatase 64 U/L (39-117); Aspartate Amino Transferase 9 U/L (5-31); Bilirubin Direct < 0.2 mg/dL (0.0-0.5); Bilirubin Total 0.3 mg/dL (0.0-1.0); Lipase 27 U/L (8-78)
[2020-06-17 11:49] LABS: ~Hepatitis B Surface Antibody NONREACTIVE (Nonreactive)
[2020-06-17 12:19] LABS: ~HepC Num1 0.07 S/CO (0.00-0.79); ~Hepatitis C Antibody Nonreactive (Nonreactive)
[2020-06-17 12:35] LABS: Estimated Average Glucose 117 mg/dL; Hemoglobin A1c % 5.7 %
[2020-06-17 12:38] LABS: TSH reflex Free T4 0.95 uIU/mL (0.32-4.0)
[2020-06-17 13:01] LABS: Ferritin 76 ng/mL (10-250)
[2020-06-18 13:26] LABS: Red Blood Cell Folate 581 ng/mL RBC (>280)
== END 2020-06-17 09:42 | disposition home or self-care (01) ==
LOC: HO.XRAY 09:41
PROVIDERS: Absent Provider Psychiatry & Neurology Neurology; PCP Internal Medicine; Visit Provider Internal Medicine
DX: M54.6 Pain in thoracic spine (principal)
CPT/HCPCS: 36415; 71046; 72040; 80076; 82728; 82747; 83036; 83690; 84443; 85027; 86706; 86803; 87340; 87522

== ENCOUNTER → 2020-06-18 08:30 | Outpatient (REF) | payer MEDICAID, SELFPAY ==
--- NOTE | ~2020-06-18 | NM_ITS ---
Myocardial perfusion study Indication: Palpitations, shortness of breath and chest pain to evaluate for myocardial ischemia Technique: The patient was brought in for a Lexiscan perfusion study on 06/18/2020. Patient performed low-level exercise and was injected 0.4 mg of Lexiscan intravenously. Within a minute of injection, 25 mCi of sestamibi was given intravenously. Images were obtained using the SPECT gamma camera interlaced with the gating device. Images were obtained in supine position. Resting perfusion study was performed on 06/22/2020. Patient was administered 25 mCi of sestamibi intravenously at rest. Images were then obtained in supine position. Images obtained with and without CT attenuation. Total DLP 87 mGy-cm. Images were processed with the software and compared side to side in short axis, horizontal long axis and vertical long axis views. Findings: The stress perfusion study showed non attenuated images show overall normal uptake of radiotracer in all segment of LV myocardium with minimal patchy thinning. There is normal variant. There is intense subdiaphragmatic uptake interfering with inferior wall. Attenuation corrected images show mild thinning of the distal anterior and the septum of the LV myocardium.. The gated study shows low normal LV systolic function with calculated LVEF of 50%. LV cavity is normal in size. The gated study shows normal systolic wall thickening and contraction of segments. Resting study shows no change in perfusion pattern compared to stress perfusion study. Gating at rest reveals normal systolic wall motion with visually estimated ejection fraction at greater than 50%. The findings are consistent with likely normal myocardial perfusion. NM/NM jackie perf SPECT rest & str Impression: 1. Myocardial perfusion imaging study shows likely normal myocardial perfusion 2. Gated LVEF is 50% 3. Transient ischemic dilatation not present EKG is nondiagnostic for ischemia
--- NOTE | 2020-06-18 08:33 | CA_ITS ---
Acquisition Time: 2020-06-18 08:36:23 Total Exercise Time: 00:10:16 Test Indications: Dyspnea Medications: ALBUTEROL AMLODIPINE PANTOPRAZOLE DIVALPROAX Protocol: LEXISCAN Max HR: 133 BPM 77% of Pred: 171 BPM Max BP: 118/080 mmHG Max Work Load: 1.4 METS Pharmacological stress test using Lexiscan while walking on the treadmill. Pt tolerated well, denies any anginal sx. EKG without any arrhythmia, non-diagnostic for ischemia. Nuclear images to follow. Normotensive response to test. Test reviewed with Dr Blas. Referred By: Carol Newman Overread By: Mikala Louis NP
[2020-06-18 10:03] LABS: Glucose Urine UA NEG (NEG); Leukocyte Esterase Urine TRACE (NEG); Nitrite Urine NEG (NEG); PH 6.5 (5.0-8.0); UACC Culture Trigger YES; Urine Blood NEG (NEG); Urine Ketones NEG (NEG); Urine Protein NEG (NEG-TRACE)
[2020-06-18 10:04] LABS: Appearance Urine HAZY; Color Urine YELLOW
[2020-06-18 10:12] LABS: Bacteria Urine TRACE /LPF; RBC Urine 0 /HPF (0); Squamous Epithelial Cell Urine 1+ /LPF
== END ==
LOC: HO.CARD 08:30
PROVIDERS: Internal Medicine; Visit Provider Nurse Practitioner Family
DX: R07.9 Chest pain, unspecified (principal); R06.00 Dyspnea, unspecified; R00.2 Palpitations
CPT/HCPCS: 78452; 81001; 81003; 87086; 93016; 93017; 93018; A9500; J0280; J2785

== ENCOUNTER → 2020-07-08 13:16 | Outpatient (BNVA) | payer MEDICAID, SELFPAY | PROVIDERS: PCP Internal Medicine; Referring Provider Internal Medicine; Visit Provider Internal Medicine Cardiovascular Disease | DX: R07.9 Chest pain, unspecified (principal) | CPT/HCPCS: 99212 ==

== ENCOUNTER → 2020-07-22 12:42 | Outpatient (BNVA) | payer MEDICAID, SELFPAY | PROVIDERS: Referring Provider Internal Medicine; Visit Provider Physician Assistant | DX: Z12.11 Encounter for screening for malignant neoplasm of colon (principal); K21.9 Gastro-esophageal reflux disease without esophagitis | CPT/HCPCS: 99212 ==

== ENCOUNTER 2020-08-11 09:30 | Outpatient (REF) | payer MEDICAID, SELFPAY ==
--- NOTE | ~2020-08-11 | FL_ITS ---
EXAMINATION: FL BARIUM SWALLOW CLINICAL INFORMATION: Gastroesophageal reflux disease without esophagitis. COMPARISON: None TECHNIQUE: Barium swallow examination is performed using fluoroscopic evaluation in addition to multiple fluoroscopic spot views. The patient is imaged both upright and prone and using both thick and thin sulfate along with effervescent granules. Fluoroscopy time: 1.5 minutes DAP: 9.926 Gycm2 Images: 55 FINDINGS: Following oral administration of thick, thin barium and barium-coated turkey, there is normal propagation of bolus from the oral cavity through the pharynx, esophagus into stomach without any evidence of obstruction, narrowing or stricture. On placing patient prone and oral administration of thin barium, there is good distention of esophagus without any intraluminal filling defect. No gastroesophageal reflux or hiatal hernia is seen. FL/FL barium swallow IMPRESSION: Unremarkable barium swallow.
== END 2020-08-11 09:31 | disposition home or self-care (01) ==
LOC: HO.XRAY 09:30
PROVIDERS: PCP Internal Medicine; Visit Provider Physician Assistant
DX: K21.9 Gastro-esophageal reflux disease without esophagitis (principal); R10.9 Unspecified abdominal pain
CPT/HCPCS: 74220

== ENCOUNTER → 2020-08-19 10:31 | Outpatient (BNVA) | payer MEDICAID, SELFPAY | PROVIDERS: PCP Internal Medicine; Visit Provider Advanced Practice Midwife | DX: Z30.42 Encounter for surveillance of injectable contraceptive (principal) | CPT/HCPCS: 96372; 99211 ==

== ENCOUNTER 2020-08-21 11:48 | Day surgery (SDC) | payer MEDICAID, SELFPAY ==
--- NOTE | 2020-08-20 09:07 | P.CONAN_ITS ---
Documented by User: Brandie Hill 08/20/20 09:12 HPI - Anesthesia Eval Consult details Narrative: 49yo F for Upper Endoscopy and Colonoscopy Recent cardiac work up for CP - all negative for ischemia, likely musculoskeletal per last cardiac f/u visit PMFSH Active Problems Active Problems: All Active Problems (Updated 07/22/20 @ 14:57 by Jordyn Rene PA-C) Encounter for screening colonoscopy (Acute) Acid reflux (Acute) On Depo-Provera for contraception (Acute) Yeast infection involving the vagina and surrounding area (Acute) Well woman exam with routine gynecological exam (Acute) Cervical cancer screening (Acute) Palpitation (Acute) Chest pain (Acute) Dyspnea on exertion (Acute) COVID-19 (Acute) Encounter for management and injection of depo-Provera (Acute) Past Medical History Medical History Chest pain COVID-19 Dyspnea on exertion GERD (gastroesophageal reflux disease) Family History Family History Mother Diabetes HTN (hypertension) Hypercholesteremia Stroke Father Diabetes HTN (hypertension) Hypercholesteremia Kidney disease Pulmonary disease Social History Social History Household Members: Family Alcohol intake: never Patient Tobacco Use Status: Never used Tobacco Smoked in Last 30 Days: No Use of substances other than those prescribed or required for medical reasons: No Are you DNR?: No Advance Directives: No Advance Directives Information Provided: Yes Recently lost weight without trying: No Nutrition Risks: No Nutritional Risk Current occupational status: employed Current occupation: [employer] Meds Allergies Allergy/AdvReac Type Severity Reaction Status Date / Time seafood Allergy Severe Anaphylaxis Verified 08/21/20 12:49 Home Medications Medication Instructions Recorded Confirmed Last Taken Type albuterol sulfate 90 mcg/actuation 1 inh INHALATION QID 03/19/20 07/22/20 Unknown History aerosol inhaler aluminum-mag hydroxide-simethicone 10 ml PO Q6H PRN 03/19/20 07/22/20 Unknown History 200 mg-200 mg-20 mg/5 mL oral susp cholecalciferol (vitamin D3) 50 50 mcg PO DAILY 03/19/20 07/22/20 Unknown History mcg (2,000 unit) capsule epinephrine 0.3 mg/0.3 mL 0.3 mg IM Q15M PRN 03/19/20 07/22/20 Unknown History injection, auto-injector fluticasone propionate 50 1 spray INTRANASAL DAILY 03/19/20 07/22/20 Unknown History mcg/actuation nasal spray,suspension amitriptyline 75 mg tablet 75 mg PO BEDTIME 03/23/20 07/22/20 Unknown History pantoprazole 20 mg tablet,delayed 20 mg PO BID tab 03/23/20 07/22/20 Unknown History release sennosides 8.6 mg capsule 8.6 mg PO BEDTIME PRN 03/23/20 07/22/20 Unknown History divalproex 500 mg tablet,delayed 500 mg PO BID 04/01/20 07/22/20 Unknown History release Exam Exam Date and Time: August 20, 2020 0907 Pertinent Lab Results Pertinent Lab Results: Laboratory Tests 02/27/20 06/17/20 23:02 10:22 WBC 7.0 Hgb 12.2 Hct 37.1 Plt Count 286 Sodium 139 Potassium 3.6 Chloride 107 Carbon Dioxide 23 BUN 10 Creatinine 0.71 Narrative Narrative: EKG 04/2020 Sinus tachycardia 103/min, Right axis deviation, QTc 458 msec. Echo 03/2020 Conclusions: - Essentially normal study Holter 05/2020 Underlying rhythm is sinus; Average ventricular rate 90/min; Rare supraventricular ectopy with very brief runs; Rare ventricular ectopy; some couplets; No sustained arrhythmias; No symptoms mentioned in patient diary. NM jackie perf SPECT rest & str 05/2020 Impression: 1. Myocardial perfusion imaging study shows likely normal myocardial perfusion 2. Gated LVEF is 50% 3. Transient ischemic dilatation not present EKG is nondiagnostic for ischemia Assessment and Plan Assessment Anesthesia Assessment: Chart Reviewed Documented by User: Kyree Velez 08/21/20 13:59 [facility] Past Medical History Medical History Chest pain COVID-19 Dyspnea on exertion GERD (gastroesophageal reflux disease) Family History Family History Mother Diabetes HTN (hypertension) Hypercholesteremia Stroke Father Diabetes HTN (hypertension) Hypercholesteremia Kidney disease Pulmonary disease Social History Social History Household Members: Family Alcohol intake: never Patient Tobacco Use Status: Never used Tobacco Smoked in Last 30 Days: No Use of substances other than those prescribed or required for medical reasons: No Are you DNR?: No Advance Directives: No Advance Directives Information Provided: Yes Recently lost weight without trying: No Nutrition Risks: No Nutritional Risk Current occupational status: employed Current occupation: [employer] Allergies Allergy/AdvReac Type Severity Reaction Status Date / Time seafood Allergy Severe Anaphylaxis Verified 08/21/20 12:49 Home Medications Medication Instructions Recorded Confirmed Last Taken Type albuterol sulfate 90 mcg/actuation 1 inh INHALATION QID 03/19/20 07/22/20 Unknown History aerosol inhaler aluminum-mag hydroxide-simethicone 10 ml PO Q6H PRN 03/19/20 07/22/20 Unknown History 200 mg-200 mg-20 mg/5 mL oral susp cholecalciferol (vitamin D3) 50 50 mcg PO DAILY 03/19/20 07/22/20 Unknown History mcg (2,000 unit) capsule epinephrine 0.3 mg/0.3 mL 0.3 mg IM Q15M PRN 03/19/20 07/22/20 Unknown History injection, auto-injector fluticasone propionate 50 1 spray INTRANASAL DAILY 03/19/20 07/22/20 Unknown History mcg/actuation nasal spray,suspension amitriptyline 75 mg tablet 75 mg PO BEDTIME 03/23/20 07/22/20 Unknown History pantoprazole 20 mg tablet,delayed 20 mg PO BID tab 03/23/20 07/22/20 Unknown History release sennosides 8.6 mg capsule 8.6 mg PO BEDTIME PRN 03/23/20 07/22/20 Unknown History divalproex 500 mg tablet,delayed 500 mg PO BID 04/01/20 07/22/20 Unknown History release Exam Airway Mallampati Class: II TM Dist: >3cm Neck ROM: Full Loose/Missing/Broken Teeth: No Heart: rrr+[id number] Lungs: cta b/l Assessment and Plan Assessment Anesthesia Assessment: Anesthesia Plan Discussed, PAT Visit and Chart Reviewed Final Anesthetic Review NPO: Yes ASA Class: II Final Preanesthetic Review: No Changes in Pt Med Stat, Meds/Allgs Chart Reviewed, Consent Obtained/Reviewed and Anes Risks/Benef Reviewed Patient Risk: Intermediate Procedure Risk: Low Assessment/Block/Sedation in SS: Assess/Block/Sedation-SS Anesthetic Plan Anesthetic Plan: MAC: and Agree w/ Assess. and Plan Disposition: Standard PACU
[2020-08-21 12:22] VITALS: BMI 31.4
[2020-08-21 12:37] VITALS: BP 128/79; PULSE 103; RESP 16; TEMP 36.6; O2SAT 100
[2020-08-21 12:38] LABS: UPreg QC Valid YES; Urine Pregnancy NEGATIVE (NEGATIVE)
[2020-08-21] MEDS: Lactated Ringers 1,000 ML 100 ML IVCONT (12:46)
--- NOTE | 2020-08-21 14:02 | MHC.SHP ---
Pre-Procedural Eval Section A Date of Service: 08/21/20 The patient is an INPATIENT: No Changes since office visit: Yes Patient answered all questions; No Cold of Flu in the past 2 weeks, No New Medical Problems and No Changes in Medication The History & Physical has been completed within 30 days and I have reviewed it.: Yes Section B Chief Complaint: Screning, Acid reflux Allergies: Allergies Allergy/AdvReac Type Severity Reaction Status Date / Time seafood Allergy Severe Anaphylaxis Verified 08/21/20 12:49 Plan I have reviewed the history and physical and performed a pertinent physical examination on my patient. No changes have occurred unless specified.
--- NOTE | 2020-08-21 14:18 | W.PM.OPN ---
Operative Note Operative Note Date of Service: 08/21/20 Narrative: Pre-op diagnosis: Colon cancer screening, GERD Post-op diagnosis: other ( GERD, gastritis, colon polyps, diverticulosis) Procedure: FLEXIBLE TRANSORAL UPPER GASTROINTESTINAL ENDOSCOPY WITH BIOPSIES AND COLONOSCOPY TILL CECUM WITH SNARE POLYPECTOMY UPPER ENDOSCOPY Consent: Indications for the procedure and potential complications of bleeding, perforation, reaction to medications and missed diagnosis were discussed with the patient and informed consent was obtained. Instrument: Olympus GIF H 190 mid size upper endoscope Monitoring: Vital signs and clinical assessment, continuous EKG monitoring, Pulse oximetry, Carbon Dioxide monitoring and blood pressure monitoring were done throughout the procedure. Procedure: The patient was placed in the left lateral decubitis position and pre-procedure medications were administered and a bite block was placed. The endoscope was inserted into the mouth and advanced under direct vision to the third part of duodenum. A careful inspection was made as the upper endoscope was withdrawn including a retroflexed examination of the proximal stomach; Findings and interventions are described below. Findings: Larynx: Normal Esophagus: GE junction at 36 cms. Irregular Z line - biopsied to check for Malagon's. Stomach: Multiple 5 to 15 mm benign appearing polyps in fundus and body of stomach - biopsied. Mild gastric erythema. Biopsies were obtained. Grade 2 flap valve on retroflexed examination of the cardia. Duodenum: Normal bulb and descending duodenum Intervention: Biopsies as noted above COLONOSCOPY PROCEDURE NOTE Consent: Indications for the procedure and potential complications of bleeding, perforation, reaction to medications and missed diagnosis were discussed with the patient and informed consent was obtained. Instrument: Olympus PCF H 190 L variable stiffness pediatric colonoscope Monitoring: Vital signs and clinical assessment, intermittent blood pressure monitoring, continuous EKG monitoring, Pulse oximetry and Carbon Dioxide monitoring were done throughout the procedure. Colon withdrawl time was 35 minutes. Procedure: The patient was placed in the left lateral decubitis position and pre-procedure medications were administered. After a digital rectal examination of the ano-rectum, the video colonoscope was inserted into the rectum and advanced through the colon to the cecum. The colonoscope was slowly withdrawn in a retrograde panoramic fashion and the colon mucosa was carefully examined including a retroflexed view of the rectum. Findings and interventions are described below. Procedure Difficulty: : Colon was long and tortuous and there was some loop formation. no maneuvers were required Findings: Terminal Ileum: Not evaluated Cecum: Normal Ascending Colon: Normal Transverse Colon: A 10 mm sessile polyp removed with a cold snare and polyp was not retrieved Descending Colon: moderate diverticulosis Sigmoid Colon: Moderate diverticulosis Rectum: Normal Ano-rectum: Normal Colon preparation: Good after copious irrigation and fair in some areas of the colon Impression and Post Procedure Diagnosis: Endoscopy Findings ESOPHAGUS: Irregular Z line - biopsied to check for Malagon's. STOMACH: Multiple 5 to 15 mm benign appearing polyps in fundus and body of stomach - biopsied. Mild gastric erythema. Biopsies were obtained. Colonoscopy Findings: One polyp removed - polyp was not retrieved Moderate diverticulosis seen in the left colon Fair prep in some areas of the colon. Plan: Await pathology results Patient has an appointment on 08/31/20 in the GI Clinic with KAMRON Stevens . Repeat Colonoscopy interval based on path results - in 1-2 years due to fair prep. Above findings were reviewed with the patient and GERD, colon polyps and diverticulosis handouts were given in the discharge area Surgeon: Jessica Barrera MD Anesthesia: MAC (Tricia Noble, JOSSELINE) Was an Corporate Statistical Financial Analyst used for this Procedure?: Yes Corporate Statistical Financial Analyst: Heriberto Proctor Estimated blood loss (mL): 0 Pathology: other (A- GASTRIC ANTRUM BXS R/O H. PYLORI B- GASTRIC POLYP C- DISTAL ESOPHAGUS BXS R/O MALAGON'S) Condition: stable Disposition: PACU
[2020-08-21 15:35] VITALS: BP 116/71; PULSE 84; RESP 16; TEMP 36.2; O2SAT 100
[2020-08-21 15:50] VITALS: BP 140/85; PULSE 88; RESP 18; O2SAT 99
== END 2020-08-21 16:04 | disposition home or self-care (01) ==
PROVIDERS: Nurse Practitioner; PCP Internal Medicine; Visit Provider Internal Medicine Gastroenterology
PROC: (CPT 45385; principal; 2020-08-21 12:50)
DX: Z12.11 Encounter for screening for malignant neoplasm of colon (principal); K63.5 Polyp of colon; K57.30 Diverticulosis of large intestine without perforation or abscess without bleeding; K21.9 Gastro-esophageal reflux disease without esophagitis; K29.50 Unspecified chronic gastritis without bleeding; K31.7 Polyp of stomach and duodenum; Z79.899 Other long term (current) drug therapy; Z86.16 Personal history of COVID-19
CPT/HCPCS: 45385; 43239; 81025; 88305; 88342

== ENCOUNTER → 2020-10-13 10:37 | Outpatient (BNVA) | payer MEDICAID, SELFPAY | PROVIDERS: Visit Provider Physician Assistant ==

== ENCOUNTER → 2020-11-11 10:54 | Outpatient (BNVA) | payer MEDICAID, SELFPAY | PROVIDERS: Visit Provider Advanced Practice Midwife | DX: Z30.42 Encounter for surveillance of injectable contraceptive (principal) | CPT/HCPCS: 96372; 99211 ==

== ENCOUNTER → 2021-02-08 12:48 | Outpatient (BNVA) | payer MEDICAID, SELFPAY | PROVIDERS: PCP Internal Medicine; Visit Provider Advanced Practice Midwife | DX: Z30.42 Encounter for surveillance of injectable contraceptive (principal) | CPT/HCPCS: 96372; 99211 ==

== ENCOUNTER 2021-05-28 13:52 | Outpatient (REF) | payer MEDICAID, SELFPAY ==
[2021-05-29 11:15] LABS: BV Int Neg Control Negative (Negative); BV Int Pos Control Positive (Positive)
[2021-05-29 14:56] LABS: CT PCR NOT DETECTED (Not Detect.); NG PCR NOT DETECTED (Not Detect.)
== END 2021-05-28 13:53 | disposition home or self-care (01) ==
LOC: HO.LAB 13:52
PROVIDERS: PCP Internal Medicine; Visit Provider Advanced Practice Midwife
DX: Z01.411 Encounter for gynecological examination (general) (routine) with abnormal findings (principal); Z20.2 Contact with and (suspected) exposure to infections with a predominantly sexual mode of transmission; B37.3 Candidiasis of vulva and vagina
CPT/HCPCS: 87480; 87491; 87510; 87591; 87660

== ENCOUNTER → 2021-05-31 10:54 | Outpatient (BNVA) | payer MEDICAID, SELFPAY | PROVIDERS: PCP Internal Medicine; Visit Provider Advanced Practice Midwife | DX: Z13.89 Encounter for screening for other disorder (principal) ==

== ENCOUNTER → 2021-06-01 08:48 | Outpatient (BNVA) | payer MEDICAID, SELFPAY | PROVIDERS: PCP Internal Medicine; Visit Provider Advanced Practice Midwife | DX: Z30.42 Encounter for surveillance of injectable contraceptive (principal) | CPT/HCPCS: 96372; 99211 ==

== ENCOUNTER 2021-07-01 09:22 | Outpatient (REF) | payer MEDICAID, SELFPAY ==
[2021-07-01 12:09] LABS: Hematocrit 38.2 % (37.0-47.0); Hemoglobin 12.2 g/dl (12.0-16.0); Mean Corpuscular HGB Conc 31.9 g/dl (31.0-35.0); Mean Corpuscular Hemoglobin 28.3 pg (27.0-33.0); Mean Corpuscular Volume 88.6 fL (80.0-98.0); Platelet Count 320 X10*3/uL (160-400); Red Blood Count 4.31 X10*6/uL (4.20-5.50); Red Cell Distribution Width 13.3 % (11.0-16.0); White Blood Count 8.9 X10*3/uL (4.8-10.8)
[2021-07-01 12:42] LABS: TSH reflex Free T4 1.57 uIU/mL (0.32-4.0)
== END 2021-07-01 09:23 | disposition home or self-care (01) ==
LOC: HO.LAB 09:22
PROVIDERS: PCP Internal Medicine; Referring Provider Internal Medicine; Visit Provider Internal Medicine Cardiovascular Disease
DX: R00.0 Tachycardia, unspecified (principal)
CPT/HCPCS: 36415; 84443; 85027; 93005; 99212

== ENCOUNTER → 2021-08-27 10:09 | Outpatient (BNVA) | payer MEDICAID, SELFPAY | PROVIDERS: PCP Internal Medicine; Visit Provider Advanced Practice Midwife | DX: Z30.42 Encounter for surveillance of injectable contraceptive (principal) | CPT/HCPCS: 96372; 99211 ==

== ENCOUNTER 2021-09-15 13:23 | Outpatient (REF) | payer MEDICAID, SELFPAY | END 2021-09-15 13:24 | disposition home or self-care (01) | LOC: HO.MAMMO 13:23 | PROVIDERS: PCP Internal Medicine; Visit Provider Internal Medicine | DX: Z13.89 Encounter for screening for other disorder (principal) ==

== ENCOUNTER 2021-09-16 14:51 | Outpatient (REF) | payer MEDICAID, SELFPAY ==
--- NOTE | ~2021-09-16 | MM_ITS ---
EXAMINATION: MM SCREENING DIGITAL BREAST TOMOSYNTHESIS, BILATERAL CLINICAL INFORMATION: Screening. Asymptomatic. The lifetime risk of breast cancer based on the Tyrer-Cuzick Model is 9%. COMPARISON: Mammography: 03/17/2016, 07/23/2014, 12/28/2011 TECHNIQUE: Digital breast tomosynthesis is performed in both the craniocaudal and mediolateral oblique views along with computer-aided detection (CAD). Synthesized 2D images are generated from the tomosynthesis. FINDINGS: There are scattered areas of fibroglandular density (ACR BI-RADS breast composition Category b). There are no significant masses, abnormal calcifications, or other abnormalities. The axilla and skin contours are unremarkable. Parenchymal pattern is similar to prior studies. MM/MM tomosynthesis screening BI IMPRESSION: No mammographic evidence of malignancy. ASSESSMENT: BI-RADS 1: Negative RECOMMENDATION: Routine annual mammography screening. This patient's information was entered into a reminder system with a target due date for their next mammogram.
== END 2021-09-16 14:52 | disposition home or self-care (01) ==
LOC: HO.MAMMO 14:51
PROVIDERS: PCP Internal Medicine; Visit Provider Internal Medicine
DX: Z12.31 Encounter for screening mammogram for malignant neoplasm of breast (principal)
CPT/HCPCS: 77063; 77067

== ENCOUNTER → 2021-11-12 11:03 | Outpatient (BNVA) | payer MEDICAID, SELFPAY | PROVIDERS: PCP Internal Medicine; Visit Provider Advanced Practice Midwife | DX: Z30.42 Encounter for surveillance of injectable contraceptive (principal) | CPT/HCPCS: 96372; 99211; J1050 ==

== ENCOUNTER 2021-12-20 12:29 | Outpatient (REF) | payer MEDICAID, SELFPAY ==
--- NOTE | 2021-12-20 14:20 | PFT_ITS ---
INDICATION: Dyspnea. SPIROMETRY: FEV1 to FVC 90% with an FEV1 of 2.27 L which is 88% predicted. An FVC of 2.5 on L, which is 78% predicted. No significant response to bronchodilators noted. Maximum voluntary ventilation 76% predicted. LUNG VOLUMES: Total lung capacity 81% predicted with expiratory reserve volume of 41% predicted. DIFFUSION CAPACITY: DLCO 75% predicted, it does correct to normal when correcting for the alveolar volume. COMPARISONS: None. INTERPRETATION: No obstructive nor restrictive ventilatory defects identified. No significant response to bronchodilators noted. The patient does have a mild decrease in maximum voluntary ventilation, which could be secondary to deconditioning. Lung volumes are low normal and does have a decrease in the expiratory reserve volume, likely secondary to hyperexpansion of the lungs and elevated BMI. The patient does have a mild diffusion impairment, although it does correct to normal when correcting for the alveolar volume. If asthma is in the differential, you can consider methacholine challenge to assess for hyperreactive airways, otherwise clinical correlation is warranted. MD YESICA Potter/FIGUEROA / [id number]
== END 2021-12-20 12:30 | disposition home or self-care (01) ==
LOC: HO.RESP 12:29
PROVIDERS: PCP Internal Medicine; Visit Provider Internal Medicine Cardiovascular Disease
DX: R06.00 Dyspnea, unspecified (principal)
CPT/HCPCS: 94060; 94727; 94729

== ENCOUNTER → 2022-02-02 12:51 | Outpatient (BNVA) | payer MEDICAID, SELFPAY | PROVIDERS: Visit Provider Advanced Practice Midwife | DX: Z30.42 Encounter for surveillance of injectable contraceptive (principal) | CPT/HCPCS: 96372; 99211 ==

== ENCOUNTER → 2022-02-03 14:27 | Outpatient (BNVA) | payer MEDICAID, SELFPAY | PROVIDERS: PCP Internal Medicine; Visit Provider Internal Medicine Pulmonary Disease | DX: G47.33 Obstructive sleep apnea (adult) (pediatric) (principal); R06.00 Dyspnea, unspecified | CPT/HCPCS: 99212 ==

== ENCOUNTER → 2022-02-16 13:55 | Outpatient (REF) | payer MEDICAID, SELFPAY | LOC: HO.SL 13:55 | PROVIDERS: PCP Internal Medicine; Visit Provider Internal Medicine Pulmonary Disease | DX: G47.33 Obstructive sleep apnea (adult) (pediatric) (principal) | CPT/HCPCS: 95806 ==

== ENCOUNTER → 2022-05-20 12:58 | Outpatient (BNVA) | payer MEDICAID, SELFPAY | PROVIDERS: PCP Internal Medicine; Visit Provider Internal Medicine Pulmonary Disease | DX: G47.33 Obstructive sleep apnea (adult) (pediatric) (principal); R06.00 Dyspnea, unspecified | CPT/HCPCS: 99212 ==

== ENCOUNTER 2022-09-12 09:52 | Outpatient (AMB) | payer MEDICAID, SELFPAY ==
--- NOTE | 2022-09-12 09:59 | A.OFFVIS_ITS ---
Intake Vital Signs 09/12/22 10:00 Height 5 ft 2 in Weight 210 lb BMI 38.4 BP 138/84 Intake Visit Reasons: Restart DEPO Nutrition Partner Required: Yes Nutrition Partner Language: Swedish Allergies seafood Allergy (Severe, Verified 09/12/22 10:02) Anaphylaxis Medication List - Last Reconciled 09/12/22 by Ilsa Loredo CNM acetaminophen 500 mg PO Q4H PRN albuterol sulfate 90 mcg/actuation (ProAir HFA) 1 inh inhalation QID amitriptyline 100 mg PO BEDTIME cholecalciferol (vitamin D3) 50 mcg PO DAILY divalproex 500 mg PO BID epinephrine (EpiPen) 0.3 mg IM Q15M PRN gabapentin 600 mg PO BEDTIME ibuprofen 600 mg PO TID meclizine 25 mg PO BEDTIME medroxyprogesterone (Depo-Provera) 150 mg IM Q12W pantoprazole 20 mg PO BID sennosides (senna) 8.6 mg PO BEDTIME PRN topiramate 50 mg PO BID Is last menstrual period known: Yes Last menstrual period: 07/28/22 HPI Restart DEPO HPI Details Patient is here to restart her Depo but she did not think she missed any she feels sure that she had 1 in May and that she did not miss it. Records do not indicate that in our system and she says she did not go somewhere else for instance [facility] for it. She has not been sexually active in 5 months but she definitely wants it just in case for the future. She has been getting periods every month although her last period was July 28 and it lasted about 5 days which is normal for her and she has not had 1 yet in August. She has been using Depo often on for about 9 years. She knows that she is in the karie menopausal time and 1 of these days she will not needed. But she does not want to take a chance in case she does have sex. 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 She has been told by her doctor that she is prediabetic which she is trying to manage by eating smaller portions and trying to avoid sweets and soda and all of the carbs that contribute to weight gain. She has a very strong family history of diabetes as well. [facility] Medical History Chest pain COVID-19 Dyspnea on exertion GERD (gastroesophageal reflux disease) Surgical History No pertinent past surgical history Family History Mother Diabetes HTN (hypertension) Hypercholesteremia Stroke Father Diabetes HTN (hypertension) Hypercholesteremia Kidney disease Pulmonary disease Social History Household Members: Family Alcohol intake: never Patient Tobacco Use Status: Never used Tobacco Current occupational status: employed Current occupation: [employer] Female Reproductive History Menstrual Age of Menarche: 12 Date of last menstrual period: 07/28/22 Date of last pap smear: 05/27/20 (negative) Physical Exam Vital Signs: Last Vital Signs BP 138/84 09/12/22 10:00 BMI result Body Mass Index 38.4 Assessment & Plan Assessment & Plan (1) On Depo-Provera for contraception: Comment: Could not get it on 05/04 secondary to COVID exposure, will restart on Wednesday 05/31 denies UPI since beginning of April./ 09/12/2022 Depo restart with next menses. Code(s): Z30.42 - Encounter for surveillance of injectable contraceptive Plan Patient is here to restart her Depo but she did not think she missed any she feels sure that she had 1 in May and that she did not miss it. Records do not indicate that in our system and she says she did not go somewhere else for instance [facility] for it. She has not been sexually active in 5 months but she definitely wants it just in case for the future. She has been getting periods every month although her last period was July 28 and it lasted about 5 days which is normal for her and she has not had 1 yet in August. She has been using Depo often on for about 9 years. She knows that she is in the karie menopausal time and 1 of these days she will not needed. But she does not want to take a chance in case she does have sex. 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 She has been told by her doctor that she is prediabetic which she is trying to manage by eating smaller portions and trying to avoid sweets and soda and all of the carbs that contribute to weight gain. She has a very strong family history of diabetes as well. Discussed all of the above and discussed that she may not need the Depo-Provera for very long. Discussed whether not she noticed increased weight gain on the Depo but she did not notice that in the past. Discussed that sometimes Depo- Provera since she will be restarting can contributed to increased appetite so to be careful of that as she is now trying to re double her efforts in the face of her prediabetic diagnosis Also discussed timing of start since she has not been sexually active in at least 5 months yes it would be fine to start the Depo-Provera tomorrow when she can come, HOWEVER, Given that she has not had a period since July 28 she would be much more likely to then have a problem with irregular bleeding that could last for a significant amount of time if she started the Depo not in sync with her menses I would recommend that she start it at the very beginning of her next menstrual. But I am prescribing it today so she can go flower buncher or picker prescription we will have a test done before she leaves to document negative and 1 will be done before she starts Depo-Provera as well even with her menses. Medications: Refilled medroxyprogesterone (Depo-Provera) 150 mg IM Q12W 1 mL 5RF Coding Level of Care Code Est Pt Level 3 (19169) Diagnoses On Depo-Provera for contraception Z30.42
[2022-09-12 10:00] VITALS: BP 138/84; BMI 38.4
== END 2022-09-12 12:46 | disposition home or self-care (01) ==
LOC: HO.HWS 09:52
PROVIDERS: PCP Internal Medicine; Visit Provider Advanced Practice Midwife
DX: Z30.42 Encounter for surveillance of injectable contraceptive (principal); Z32.02 Encounter for pregnancy test, result negative
CPT/HCPCS: 99213

== ENCOUNTER → 2022-09-12 09:52 | Outpatient (BNVA) | payer MEDICAID, SELFPAY | PROVIDERS: PCP Internal Medicine; Visit Provider Advanced Practice Midwife | DX: Z30.42 Encounter for surveillance of injectable contraceptive (principal) | CPT/HCPCS: 81025; 99213 ==

== ENCOUNTER 2022-09-13 09:46 | Outpatient (AMB) | payer MEDICAID, SELFPAY ==
[2022-09-13 10:00] VITALS: BMI 38.4
--- NOTE | 2022-09-13 10:00 | AM.OFFVISNUR ---
Intake Vital Signs 09/13/22 10:00 Height 5 ft 2 in Weight 210 lb BMI 38.4 Intake Visit Reasons: DEPO Citizen Participation Specialist Required: No Allergies seafood Allergy (Severe, Verified 09/12/22 10:02) Anaphylaxis Is last menstrual period known: Yes Post menopausal: No Patient : No Nursing Note Pt is here for Depo restart. She had visit with Ilsa Loredo CNM 09/12/22. She reports her menses started last night, 09/12/22. Urine test yesterday was negative. No c/o. Pt tolerated injection well. Pt was advised to use BUM x2 weeks. Pt verbalizes understanding and agrees with plan. No further questions. She will schedule her next Depo in 12 wks. Office Procedures Depo Questionnaire If YES to any of the following questions, please consult a provider. Date of last menstrual period: 09/12/22 Menstrual pattern since last injection has been: Normal test in office results: Negative Irregular bleeding?: No Breast lumps or other breast changes?: No Changes in weight or appetite?: No Depression or changes in mood?: No Abnormal hair growth or loss?: No Skin problems (rash, acne, discoloration)?: No Pain at the injection site?: No Headaches?: No Nervousness?: No Abdominal pain or cramping?: No Dizziness or nausea?: No Fatigue or weakness?: No Decrease in sexual drive?: No Chest pain or shortness of breath?: No Swelling in arms or legs?: No Form completed by?: Tawana Reddy RN Office Meds Depo-Provera Performing Provider: lIsa Loredo CNM Administered by: Tawana Reddy on 09/13/22 10:04 Dose Route Admin Location Lot Number Expiration Date [employer] 150 mg IM left deltoid [id number] 11/19/24 07299-465-42 [facility] Coding Level of Care Code Established Pt Est Pt Level 1 (22665) Patient Type Established History Problem Focused Medical Decision Making Straight Forward Diagnoses Time Spent (min) 15 Assessment & Plan Assessment & Plan Orders: Orders AMB Medroxyprogesterone Injection Patient Supplied Today Z30.42 - Encounter for surveillance of injectable contraceptive
== END 2022-09-13 11:09 | disposition home or self-care (01) ==
LOC: HO.HWS 09:46
PROVIDERS: PCP Internal Medicine; Visit Provider Advanced Practice Midwife
DX: Z30.42 Encounter for surveillance of injectable contraceptive (principal)

== ENCOUNTER → 2022-09-13 09:46 | Outpatient (BNVA) | payer MEDICAID, SELFPAY | PROVIDERS: PCP Internal Medicine; Visit Provider Advanced Practice Midwife | DX: Z30.42 Encounter for surveillance of injectable contraceptive (principal) | CPT/HCPCS: 96372; 99211; J1050 ==

== ENCOUNTER 2022-12-08 10:03 | Outpatient (AMB) | payer MEDICAID, SELFPAY ==
[2022-12-08 10:11] VITALS: BMI 37.5
--- NOTE | 2022-12-08 10:11 | A.OFFVIS_ITS ---
Intake Vital Signs 12/08/22 10:11 Height 5 ft 2 in Weight 205 lb BMI 37.5 Intake Visit Reasons: control consult/DEPO Supervisor Evaporator Required: Yes Supervisor Evaporator Language: Indonesian Allergies seafood Allergy (Severe, Verified 12/08/22 10:12) Anaphylaxis Is last menstrual period known: Yes Last menstrual period: 12/05/22 Post menopausal: No HPI control consult/DEPO HPI Details Patient is here to discuss the Depo-Provera. Patient had called yesterday to reschedule her annual exam because she has her. But she still wants the Depo-Provera. I was informed by staff that the patient had not been seen in 2 years and so I recommended that the patient be seen today to have a discussion about why she was still on Depo. But it develops that the patient was seen as recently as August of this year and had a full discussion about why she wished to continue on the Depo-Provera she is still getting her menstrual periods and she is sexually active and she wants to stay on the Depo for control. She is 52 years old and is not having any symptoms of menopause at this time. Refill for the Depo-Provera to be given every 12 weeks with 5 ref ills was sent to her pharmacy but the patient says that she went to the pharmacy and called and they told her there were no refills and she even had it on the little tag that came on the Depo. Will resend her Depo-Provera prescription and she may return for visit with the nurse to get her Depo. She will reschedule her annual exam and Pap. ON LICENSE OF [facility] Medical History Chest pain Dyspnea on exertion COVID-19 GERD (gastroesophageal reflux disease) Surgical History No pertinent past surgical history Family History Mother Diabetes HTN (hypertension) Hypercholesteremia Stroke Father Diabetes HTN (hypertension) Hypercholesteremia Kidney disease Pulmonary disease Social History Household Members: Family Alcohol intake: never Patient Tobacco Use Status: Never used Tobacco Current occupational status: employed Current occupation: [employer] Female Reproductive History Menstrual Age of Menarche: 12 Date of last menstrual period: 12/05/22 control method: progesterone injection Total pregnancies: 5 Full term: 4 Number of Living Children: 4 Physical Exam Vital Signs: BMI result Body Mass Index 37.5 Assessment & Plan Assessment & Plan (1) On Depo-Provera for contraception: Comment: Could not get it on 05/04 secondary to COVID exposure, will restart on Wednesday 05/31 denies UPI since beginning of April./ 09/12/2022 Depo restart with next menses. ; 12/08/2022. Pharmacy has lost her prescription somehow will send another prescription today for Depo for 1 year. Code(s): Z30.42 - Encounter for surveillance of injectable contraceptive Plan Patient is here to discuss the Depo-Provera. Patient had called yesterday to reschedule her annual exam because she has her. But she still wants the Depo- Provera. I was informed by staff that the patient had not been seen in 2 years and so I recommended that the patient be seen today to have a discussion about why she was still on Depo. But it develops that the patient was seen as recently as August of this year and had a full discussion about why she wished to continue on the Depo-Provera she is still getting her menstrual periods and she is sexually active and she wants to stay on the Depo for control. She is 52 years old and is not having any symptoms of menopause at this time. Refill for the Depo-Provera to be given every 12 weeks with 5 refills was sent to her pharmacy but the patient says that she went to the pharmacy and called and they told her there were no refills and she even had it on the little tag that came on the Depo. Will resend her Depo-Provera prescription and she may return for visit with the nurse to get her Depo. She will reschedule her annual exam and Pap. Medications: Refilled medroxyprogesterone (Depo-Provera) 150 mg IM Q12W 1 mL 5RF medroxyprogesterone (Depo-Provera) 150 mg IM Q12W 1 mL 5RF Coding Level of Care Code Est Pt Level 3 (75197) Diagnoses On Depo-Provera for contraception Z30.42
== END 2022-12-08 10:35 | disposition home or self-care (01) ==
PROVIDERS: PCP Internal Medicine; Visit Provider Advanced Practice Midwife
DX: Z30.42 Encounter for surveillance of injectable contraceptive (principal)
CPT/HCPCS: 99213

== ENCOUNTER → 2022-12-08 10:03 | Outpatient (BNVA) | payer MEDICAID, SELFPAY | PROVIDERS: PCP Internal Medicine; Visit Provider Advanced Practice Midwife | DX: Z30.42 Encounter for surveillance of injectable contraceptive (principal) | CPT/HCPCS: 96372; 99212; J1050 ==

== ENCOUNTER 2023-03-03 08:56 | Outpatient (AMB) | payer MEDICAID, SELFPAY ==
[2023-03-03 09:29] VITALS: BMI 38.0
--- NOTE | 2023-03-03 09:29 | AM.OFFVISNUR ---
Intake Vital Signs 03/03/23 09:29 Height 5 ft 2 in Weight 208 lb BMI 38.0 Intake Visit Reasons: DEPO [employer] Packages Leak Tester Required: No Allergies seafood Allergy (Severe, Verified 12/08/22 10:12) Anaphylaxis Is last menstrual period known: Yes Post menopausal: No Patient : No Nursing Note Isis is here for scheduled Depo provera injection. No c/o. Pt tolerated injection well. She will schedule her next injection in 12 weeks. Pt verbalizes understanding and agrees with plan. No further questions. Office Procedures Depo Questionnaire If YES to any of the following questions, please consult a provider. Date of last injection: 12/08/22 Date of last menstrual period: 02/12/23 Date of last gynecology exam: 05/28/21 Menstrual pattern since last injection has been: Normal Irregular bleeding?: No Breast lumps or other breast changes?: No Changes in weight or appetite?: No Depression or changes in mood?: No Abnormal hair growth or loss?: No Skin problems (rash, acne, discoloration)?: No Pain at the injection site?: No Headaches?: No Nervousness?: No Abdominal pain or cramping?: No Dizziness or nausea?: No Fatigue or weakness?: No Decrease in sexual drive?: No Chest pain or shortness of breath?: No Swelling in arms or legs?: No Form completed by?: Tawana Reddy RN Office Meds Depo-Provera 150 mg/mL intramuscular syringe Performing Provider: Ilsa Loredo CNM Performing Location: [facility] [place] [facility] Administered by: Tawana Reddy on 03/03/23 09:31 Dose Route Admin Location Dispensed Lot Number Expiration Date [facility] Prepress Proofer 150 mg IM left deltoid 1 mL [id number] 03/22/25 32334-787-93 [facility] Coding Level of Care Code Established Pt Est Pt Level 1 (98716) Patient Type Established History Problem Focused Medical Decision Making Straight Forward Time Spent (min) 15 Assessment & Plan Assessment & Plan Plan Next Depo injection in 12 weeks. Orders: Orders AMB Medroxyprogesterone Injection Patient Supplied Today Z30.42 - Encounter for surveillance of injectable contraceptive Patient Instructions: Schedule next Depo injection in 12 weeks. Pt verbalizes understanding and agrees with plan. No further questions.
== END 2023-03-03 09:28 | disposition home or self-care (01) ==
PROVIDERS: PCP Internal Medicine; Visit Provider Advanced Practice Midwife
DX: Z30.42 Encounter for surveillance of injectable contraceptive (principal)

== ENCOUNTER → 2023-03-03 08:56 | Outpatient (BNVA) | payer MEDICAID, SELFPAY | PROVIDERS: PCP Internal Medicine; Visit Provider Advanced Practice Midwife | DX: Z30.42 Encounter for surveillance of injectable contraceptive (principal) | CPT/HCPCS: 96372; 99211; J1050 ==

== ENCOUNTER 2023-06-02 08:48 | Outpatient (AMB) | payer MEDICAID, SELFPAY ==
[2023-06-02 09:16] VITALS: BMI 37.7
--- NOTE | 2023-06-02 09:16 | AM.OFFVISNUR ---
Intake Vital Signs 06/02/23 09:16 Height 5 ft 2 in Weight 206 lb BMI 37.7 Intake Visit Reasons: Depo Linen Checker Required: No Allergies seafood Allergy (Severe, Verified 12/08/22 10:12) Anaphylaxis Is last menstrual period known: Yes Post menopausal: No Patient : No Nursing Note Isis is here for her scheduled Depo provera injection. No c/o. Pt tolerated injection well. She reports she is still having her menses each month. Pt will schedule her next injection in 12 weeks. She is scheduled for her next AG 08/01/23, last AG 05/28/21. Pt verbalizes understanding and agrees with plan. No further questions. Office Procedures Depo Questionnaire If YES to any of the following questions, please consult a provider. Date of last injection: 03/03/23 Date of last menstrual period: 05/12/23 Date of last gynecology exam: 05/28/21 Menstrual pattern since last injection has been: Normal Irregular bleeding?: No Breast lumps or other breast changes?: No Changes in weight or appetite?: No Depression or changes in mood?: No Abnormal hair growth or loss?: No Skin problems (rash, acne, discoloration)?: No Pain at the injection site?: No Headaches?: No Nervousness?: No Abdominal pain or cramping?: No Dizziness or nausea?: No Fatigue or weakness?: No Decrease in sexual drive?: No Chest pain or shortness of breath?: No Swelling in arms or legs?: No Form completed by?: Tawana Reddy RN Office Meds Depo-Provera 150 mg/mL intramuscular syringe Performing Provider: Ilsa Loredo CNM Performing Location: [facility] [place] [facility] Administered by: Tawana Reddy on 06/02/23 09:21 Dose Route Admin Location Dispensed Lot Number Expiration Date [facility] Fabric Separator Operator 150 mg IM left deltoid 1 mL [id number] 05/20/25 27230-736-53 [facility] Coding Level of Care Code Established Pt Est Pt Level 1 (94908) Patient Type Established History Problem Focused Medical Decision Making Straight Forward Time Spent (min) 13 Assessment & Plan Assessment & Plan Orders: Orders AMB Medroxyprogesterone Injection Patient Supplied Today Z30.42 - Encounter for surveillance of injectable contraceptive Medications: New Depo-Provera (medroxyprogesterone) 150 mg IM ONCE 1 mL 0RF NS Z30.42 - Encounter for surveillance of injectable contraceptive
== END 2023-06-02 09:07 | disposition home or self-care (01) ==
LOC: HO.HWS 08:48
PROVIDERS: PCP Internal Medicine; Visit Provider Advanced Practice Midwife
DX: Z30.42 Encounter for surveillance of injectable contraceptive (principal)

== ENCOUNTER → 2023-06-02 08:48 | Outpatient (BNVA) | payer MEDICAID, SELFPAY | PROVIDERS: PCP Internal Medicine; Visit Provider Advanced Practice Midwife | DX: Z30.42 Encounter for surveillance of injectable contraceptive (principal) | CPT/HCPCS: 96372; 99211; J1050 ==

== ENCOUNTER → 2023-09-01 09:17 | Outpatient (BNVA) | payer MEDICAID, SELFPAY | PROVIDERS: PCP Internal Medicine; Visit Provider Advanced Practice Midwife ==

== ENCOUNTER → 2023-09-04 09:18 | Outpatient (BNVA) | payer MEDICAID, SELFPAY | PROVIDERS: PCP Internal Medicine; Visit Provider Advanced Practice Midwife | DX: Z30.09 Encounter for other general counseling and advice on contraception (principal) | CPT/HCPCS: 96372; 99212; J1050 ==

== ENCOUNTER 2023-09-04 13:53 | Outpatient (AMB) | payer MEDICAID, SELFPAY ==
--- NOTE | 2023-09-04 14:32 | A.OFFVIS_ITS ---
Vital Signs 09/04/23 14:33 Height 5 ft 2 in Weight 205 lb 0.478 oz BMI 37.5 BP 124/82 Intake Visit Reasons: restart DEPO Hydrostatic Tester Required: Yes Hydrostatic Tester Language: National Coverage Specialist Services: Hydrostatic Tester Present (in person) Hydrostatic Tester Name: Caro MONDRAGON Information Interpreted: non-clinical & clinical Accompanied by: Self / Same As Patient Allergies seafood Allergy (Severe, Unverified 09/04/23 14:35) Anaphylaxis Is last menstrual period known: No (depo) HPI Comments Details: Presenting 13 weeks and 3 days from last Depo-Provera requesting Depo-Provera because the patient is going on vacation tomorrow. The patient has been on Depo-Provera for the last 10 years and is interested in continuing on it. Last mammogram was in 08/2021 was BI-RADS 1 [facility] Medical History Chest pain Dyspnea on exertion COVID-19 GERD (gastroesophageal reflux disease) Surgical History No pertinent past surgical history Family History Mother Diabetes HTN (hypertension) Hypercholesteremia Stroke Father Diabetes HTN (hypertension) Hypercholesteremia Kidney disease Pulmonary disease Social History Household Members: Family Alcohol intake: never Patient Tobacco Use Status: Never used Tobacco Current occupational status: employed Current occupation: [employer] Female Reproductive History Menstrual Age of Menarche: 12 Review of Systems Const All systems reviewed & are unremarkable except as noted in HPI and below Reports as per HPI and Reports no additional complaints GI Reports no additional complaints Reports no additional complaints Physical Exam Vital Signs: BMI result Body Mass Index 37.5 Assessment & Plan Assessment & Plan (1) Family planning: Code(s): Z30.09 - Encounter for other general counseling and advice on contraception Category: Social Hx Plan: Discussed with the patient the different options of control including control pills/Nuvaring, DMPA, different types of IUD ?s, sterilization. All the pros, cons, risks and benefits of each were discussed with the patient. The patient decided to go ahead with an IUD, so a more detailed discussion was carried on including types (Progesterone, Copper), mechanism of action, risks (infection, uterine perforation, failure with ectopic , septic AB, dysmenorrhea with Paraguard, others) benefits (efficient contraceptive method, hypo menorrhea with Progesterone IUD, others) GC/CG will be taken next visit and the patient was asked to call day one of next cycle for IUD insertion. Explained to the patient the risk of bone loss is reversible as long as the patient is premenopausal after discontinuation of Depo-Provera, recommended to discontinue Depo-Provera, check FSH/LH on day 7, order placed, if the patient is not in menopause to proceed with ParaGard IUD insertion and come off Depo- Provera. In addition, discussed with the patient the increase in the risk of breast cancer with long-term use of Depo-Provera, mammogram ordered, instructions given the patient to schedule mammogram janice, order placed. Discussed with the patient that per package insert of Depo-Provera it is terrance mmended to use a 1 week of backup method for control if started after 13 weeks from last shot, recommended the patient to use condoms for 1 week, all questions answered the patient verbalized understanding Instructions given the patient to schedule a follow-up appointment no later than 10 weeks for ParaGard IUD insertion to transition out of Depo-Provera. All questions answered, the patient verbalized understanding Orders: Orders MM tomosynthesis screening BI Today Z12.31 - Encounter for screening mammogram for malignant neoplasm of breast Follicle Stimulating Hormone Today N91.2 - Amenorrhea, unspecified Lutenizing Hormone Today N91.2 - Amenorrhea, unspecified Coding Level of Care Code Est Pt Level 3 (71212) Diagnoses Family planning Z30.09
[2023-09-04 14:33] VITALS: BP 124/82; BMI 37.5
== END 2023-09-04 14:58 | disposition home or self-care (01) ==
LOC: HO.HWS 13:53
PROVIDERS: PCP Internal Medicine; Visit Provider Obstetrics & Gynecology
DX: Z30.09 Encounter for other general counseling and advice on contraception (principal); Z30.42 Encounter for surveillance of injectable contraceptive
CPT/HCPCS: 99213

== ENCOUNTER 2023-11-06 13:36 | Outpatient (REF) | payer MEDICAID, SELFPAY ==
--- NOTE | ~2023-11-06 | XR_ITS ---
EXAMINATION: XR FOOT, RIGHT CLINICAL INFORMATION: Right foot pain. COMPARISON: December 03, 2014 TECHNIQUE: AP, lateral, and oblique views of the right foot. FINDINGS: Alignment is anatomic. Joint spaces are maintained. No displaced fracture or dislocation. XR/XR foot RT min 3V IMPRESSION: No acute abnormality. Electronically signed by: Mikey Ferrari MD 11/06/2023 03:08 PM EDT
== END 2023-11-06 13:37 | disposition home or self-care (01) ==
LOC: HO.HHCX 13:36
PROVIDERS: Visit Provider Student in an Organized Health Care Education/Training Program
DX: M79.674 Pain in right toe(s) (principal)
CPT/HCPCS: 73630

== ENCOUNTER 2023-12-05 13:36 | Outpatient (AMB) | payer SELFPAY ==
[2023-12-05 13:46] VITALS: BMI 37.5
--- NOTE | 2023-12-05 13:46 | AM.OFFVISNUR ---
Vital Signs 12/05/23 13:46 Height 5 ft 2 in Weight 93.043 kg BMI 37.5 Intake Visit Reasons: Depo Allergies seafood Allergy (Severe, Unverified 09/04/23 14:35) Anaphylaxis Nursing Note phu is here today for her scheduled De[po-Provera inj. Pt is overdue for her AG, and does not have ins at this time. She is self pay for her Depo-Provera. Pt aware she needs AG MARIE. Message to provider regarding this. Office Procedures Depo Questionnaire If YES to any of the following questions, please consult a provider. Date of last injection: 09/04/23 Date of last gynecology exam: 05/28/21 Menstrual pattern since last injection has been: Not Applicable Irregular bleeding?: No Breast lumps or other breast changes?: No Changes in weight or appetite?: No Depression or changes in mood?: No Abnormal hair growth or loss?: No Skin problems (rash, acne, discoloration)?: No Pain at the injection site?: No Headaches?: No Nervousness?: No Abdominal pain or cramping?: No Dizziness or nausea?: No Fatigue or weakness?: No Decrease in sexual drive?: No Chest pain or shortness of breath?: No Swelling in arms or legs?: No Form completed by?: Omari Abebe LPN Office Meds Depo-Provera 150 mg/mL intramuscular syringe Performing Provider: Ilsa Loredo CNM Performing Location[place] [facility] [place] [facility] Administered by: Shena Abebe LPN on 12/05/23 13:49 Dose Route Admin Location Dispensed Lot Number Expiration Date [facility] Engineering Aid 150 mg IM left deltoid 1 mL [id number] 01/19/26 62219-718-38 [facility] Assessment & Plan Assessment & Plan Orders: Orders AMB Medroxyprogesterone Injection Patient Supplied Today Z30.09 - Encounter for other general counseling and advice on contraception, Z30.42 - Encounter for surveillance of injectable contraceptive Medications: New Depo-Provera (medroxyprogesterone) 150 mg IM ONCE 1 mL 0RF NS Z30.09 - Encounter for other general counseling and advice on contraception, Z30.42 - Encounter for surveillance of injectable contraceptive
== END 2023-12-05 13:47 | disposition home or self-care (01) ==
LOC: HO.HWS 13:36
PROVIDERS: PCP Internal Medicine; Visit Provider Advanced Practice Midwife
DX: Z30.09 Encounter for other general counseling and advice on contraception (principal); Z30.42 Encounter for surveillance of injectable contraceptive

== ENCOUNTER → 2023-12-05 13:36 | Outpatient (BNVA) | payer SELFPAY | PROVIDERS: PCP Internal Medicine; Visit Provider Advanced Practice Midwife | DX: Z30.42 Encounter for surveillance of injectable contraceptive (principal) | CPT/HCPCS: 96372; 99211; J1050 ==

== ENCOUNTER 2024-03-04 11:46 | Outpatient (REF) | payer SELFPAY ==
[2024-03-05 15:53] LABS: Follicle Stimulating Hormone 67.4 mIU/mL; Lutenizing Hormone 17.4 mIU/mL
== END 2024-03-04 11:47 | disposition home or self-care (01) ==
LOC: HO.LAB 11:46
PROVIDERS: PCP Internal Medicine; Visit Provider Obstetrics & Gynecology
DX: Z30.09 Encounter for other general counseling and advice on contraception (principal); N91.2 Amenorrhea, unspecified
CPT/HCPCS: 36415; 83001; 83002; 96372; 99212

== ENCOUNTER 2024-03-04 11:46 | Outpatient (AMB) | payer OTHER, SELFPAY ==
--- NOTE | 2024-03-04 11:47 | A.OFFVIS_ITS ---
Vital Signs 03/04/24 15:42 Height 5 ft 2 in Weight 205 lb BMI 37.5 BP 132/82 Intake Visit Reasons: depo Certified Peer Specialist Required: Yes Certified Peer Specialist Language: Sifter [employer] Services: Certified Peer Specialist Present (in person) Certified Peer Specialist Name: Caro MONDRAGON Information Interpreted: non-clinical & clinical Allergies seafood Allergy (Severe, Unverified 09/04/23 14:35) Anaphylaxis HPI Comments Details: The patient presenting for another Depo-Provera shot. Last Depo-Provera was on 12/05/23. During the last visit, the patient was counseled about the ? indication for Depo-Provera and the possibility of menopause and possible implication of Depo-Provera on the risk of breast cancer and osteoporosis especially with long-term use, the patient has been on the Depo-Provera for more than 10 years. Explained to the patient the association of Depo-Provera with increase in the risk of breast cancer and bone loss. So the plan was to proceed with FSH/LH and mammogram. Since then the patient did not have dose test done and is presenting today for another Depo-Provera shot. No additional concerns Last mammogram was in 09/10 was BI-RADS 1 [facility] Medical History Chest pain Dyspnea on exertion COVID-19 GERD (gastroesophageal reflux disease) Surgical History No pertinent past surgical history Family History Mother Diabetes HTN (hypertension) Hypercholesteremia Stroke Father Diabetes HTN (hypertension) Hypercholesteremia Kidney disease Pulmonary disease Social History Household Members: Family Alcohol intake: never Patient Tobacco Use Status: Never used Tobacco Current occupational status: employed Current occupation: [employer] Female Reproductive History Menstrual Age of Menarche: 12 Review of Systems Const All systems reviewed & are unremarkable except as noted in HPI and below Reports as per HPI and Reports no additional complaints GI Reports no additional complaints Reports no additional complaints Physical Exam Vital Signs: Last Vital Signs BP 132/82 03/04/24 15:42 BMI result Body Mass Index 37.5 Assessment & Plan Assessment & Plan (1) Family planning: Code(s): Z30.09 - Encounter for other general counseling and advice on contraception Category: Social Hx Plan: Discussed with the patient the possible risk of Depo-Provera at the age of 53 including but not limited to reversible bone loss , increasing in the risk of breast cancer, thrombosis and others. Since the patient did not have her mammogram done since 09/10 nor FSH LH to determine if she is in menopause and wh ether she needs a method of control, recommended to the patient not to proceed with Depo-Provera, and go ahead with FSH/LH , alternatively either proceed with ParaGard IUD insertion today pending the results of the FSH/LH and mammogram versus use a backup method for control pending FSH/LH . Explained to the patient that the Depo-Provera will stay in her system for the coming 3 months and if the mammogram is abnormal, it might increase the risk of breast cancer further. Discussed with the patient the mechanism of action of ParaGard IUD, risks (infection, uterine perforation, failure with ectopic , septic AB, dysmenorrhea with Paraguard, others) benefits (efficient contraceptive method, nonhormonal with no exposure to the risk of progesterone use with no recent mammogram screening, others), after further discussion the patient insisted on getting her Depo-Provera shot today , stated that she will have FSH/LH prior to the injection and proceed with scheduling a screening mammogram screening janice. Depo-Provera sent to the patient's pharmacy to be received today. Instructions given the patient to schedule a 6 weeks FSH/LH and mammogram follow-up appointment and to discuss results and indication for control in case the patient is still in the premenopausal range consider ParaGard IUD, education material for ParaGard IUD was given to the patient. All questions answered, the patient verbalized understanding Medications: New medroxyprogesterone (Depo-Provera) 150 mg IM [id number] 1 mL 0RF Coding Level of Care Code Est Pt Level 3 (99725) Diagnoses Family planning Z30.09
[2024-03-04 15:42] VITALS: BP 132/82; BMI 37.5
== END 2024-03-04 16:19 | disposition home or self-care (01) ==
PROVIDERS: PCP Internal Medicine; Visit Provider Obstetrics & Gynecology
DX: Z30.09 Encounter for other general counseling and advice on contraception (principal)
CPT/HCPCS: 99213

== ENCOUNTER → 2024-03-28 14:09 | Outpatient (BNVA) | payer OTHER, SELFPAY | PROVIDERS: PCP Internal Medicine; Visit Provider Obstetrics & Gynecology ==

== ENCOUNTER → 2024-03-28 14:09 | Outpatient (AMB) | payer SELFPAY ==
--- NOTE | 2024-03-28 14:09 | A.OFFVIS_ITS ---
Intake Visit Reasons: labs results Woodworking Machine Offbearer Required: Yes Woodworking Machine Offbearer Language: Boom Supervisor Services: Woodworking Machine Offbearer Present (in person) Woodworking Machine Offbearer Name: Caro MONDRAGON Information Interpreted: non-clinical & clinical Allergies seafood Allergy (Severe, Unverified 09/04/23 14:35) Anaphylaxis HPI Comments Details: The patient is scheduled tele health visit to discuss the results of FSH/LH which were done on 03/04/2024 the day prior Depo-Provera shot. FSH/LH came back at 67.4/17.4 both in the menopausal range. Mammogram ordered on 09/04/2023 still not done [facility] Medical History Chest pain Dyspnea on exertion COVID-19 GERD (gastroesophageal reflux disease) Surgical History No pertinent past surgical history Family History Mother Diabetes HTN (hypertension) Hypercholesteremia Stroke Father Diabetes HTN (hypertension) Hypercholesteremia Kidney disease Pulmonary disease Social History Household Members: Family Alcohol intake: never Patient Tobacco Use Status: Never used Tobacco Current occupational status: employed Current occupation: [employer] Female Reproductive History Menstrual Age of Menarche: 12 Review of Systems Const All systems reviewed & are unremarkable except as noted in HPI and below Reports as per HPI and Reports no additional complaints GI Reports no additional complaints Reports no additional complaints Telehealth Telehealth Telehealth Platform: Telephone Location of provider rendering services: practice address Location of patient: address on file Patient Identification confirmed using: Name, : Yes Telehealth method: video Patient verbally consented to treatment: Yes Patient verbally consented to billing insurance company: Yes Patient informed of any privacy concerns related to visit: Yes Assessment & Plan Assessment & Plan (1) Menopause: Code(s): Z78.0 - Asymptomatic menopausal state Category: Medical Plan: Discussed with the patient the results of elevated FSH/LH in the menopausal range therefore recommended against any further Depo-Provera injection. In addition instructed the patient to have her mammogram done as soon as possible and schedule annual exam within 1-2 months. All questions answered, the patient verbalized understanding. I spent a total of 20 minutes reviewing the chart, talking to the patient via video and documenting in the medical record. Coding Level of Care Code Tele Est Pt Level 3 (46516) Diagnoses Menopause Z78.0
--- OUTSIDE RECORDS SUMMARY | 2024-03-28 14:11 | XMS_ITS | Encounter Summary ---
Author Organization [employer] Address [address] [facility] [address] [place] [address] Care Team Providers Care Plate Glass Installer Name Role Phone Kerri Cm MD Primary Care Provider + Reason for Visit * Reason Onset Date Comments Med Refill 01/05/2024 Encounter Details Date Type Department Care Team ([facility] st Contact Info) Description 01/05/2024 Telephone [facility] [address] [place] [address] Kerri Cm MD [address] [place] [address] Med Refill Social History Tobacco Use Types Packs/Day Years Used Date Smoking Tobacco: Never Smokeless Tobacco: Never Alcohol Use Standard Drinks/Week Comments Never 0 (1 standard drink = 0.6 oz pur e alcohol) PHQ-2 Answer Date Recorded Patient Health Questionnaire-2 Score 0 05/16/2022 Depression Answer Date Recorded Patient Health Questionnaire-9 Score 6 02/15/2022 Housing Stability Answer Date Recorded What is your housing situation today? I have tedadonis ascencio 12/05/[address] you li ve. Do you have problems with any of the following? None of the above 12/05/2022 Food Insecurity Answer Date Recorded Within the past 12 months, y ou worried that your food would run out before you got money to buy more: Never True 12/05/2022 Within the past 12 months,th e food you bought just didn't last and you didn't have enough money to get more: Never True Transportation Answer Date Recorded In the past 12 months, has l ack of transportation kept you from medical appts, meetings, work or from getting things needed for daily living? Yes, it has kept me from medical appointments or getting medications. 11/30/2022 Utilities Answer Date Recorded In the past 12 months, has t he electric, gas, oil or water company threatened to shut off services in your home? No 12/05/2022 Depression Answer Date Recorded Patient Health Questionnaire-2 Score 0 05/16/2022 Comments Unknown Sex and Gender Information Value Date Recorded Sex Assigned at Female 12/20/2021 10:14 AM EDT Legal Sex Female 10:14 AM EDT Gender Identity Female 12/20/2021 10:14 AM EDT Sexual Orientation Choose not to disclose 2021 10:14 AM EDT documented as of this encounter Miscellaneous Notes * Telephone Encounter - Hina Loomis LPN - 01/05/2024 8:55 AM EST Medication was sent to [facility] #[id number] on 12/19/23 #90 with 3 refills. * Telephone Encounter - Jerilyn Denney - 01/05/2024 8:13 AM EST TC from pt requesting medication refill. Medications needing refill : pantoprazole (ProtoNix) 20 MG EC tablet To be sent to: [facility] #[id number] documented in this encounter Plan of Treatment Not on file documented as of this encounter Visit Diagnoses Not on filedocumented in this encounter Additional Health Concerns Assessment Noted Time PHQ-9 Depression Total Score: 6 02/16/20 22 10:24 AM EST documented as of this encounter Care Teams Plate Glass Installer Relationship Specialty Start Date End Date Kerri Cm MD [address] [place] [id number] PCP - General Family Medicine 03/26/20 documented as of this encounter
--- OUTSIDE RECORDS SUMMARY | 2024-03-28 14:11 | XMS_ITS | Encounter Summary ---
Author Organization [employer] Address [address] [facility] [address] [place] [address] Care Team Providers Care Flatlock Sewing Machine Operator Name Role Phone Kerri Cm MD Primary Care Provider + Reason for Visit * Reason Onset Date Comments Med Refill 05/18/2023 Encounter Details Date Type Department Care Team (Late st Contact Info) Description 05/18/2023 Telephone [facility] [address] [place] [address] Kerri Cm MD [address] [place] [address] Med Refill Social History Tobacco Use Types [...] Telephone Encounter - Hina Loomis LPN - 05/18/2023 3:29 PM EDT Medication pended to PCP. * Telephone Encounter - Bennett Luque - 05/18/2023 3:27 PM EDT TC from pt requesting medication refill. Medications needing refill : atorvastatin (Lipitor) 40 MG tablet To be sent to: [id number] [place], [place] - [address] [place] [address] documented in this encounter Plan of Treatment Not on file documented as of this encounter Visit Diagnoses Not on filedocumented in this encounter Additional Health Concerns Assessment Noted Time PHQ-9 Depression Total Score: 6 02/16/20 22 10:24 AM EST documented as of this encounter Care Teams Flatlock Sewing Machine Operator Relationship Specialty Start Date End Date Kerri Cm MD [address] [place] [id number] PCP - General Family Medicine 03/26/20 documented as of this encounter
--- OUTSIDE RECORDS SUMMARY | 2024-03-28 14:11 | XMS_ITS | Clinical Summary ---
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 prohibits you from making any further disclosure of the information without the specific written consent of the person to whom it pertains, or as otherwise permitted by law. A general authorization for the release of medical or other information is NOT sufficient for this purpose. ? For additional information please refer to http://Stylehive.ProcessUnity/faq/UVR736 (This link is being provided for informational/ educational purposes only.) ? The performance of this assay has not been clinically validated in patients less than 2 years old. ?? 02/26/2020 10:0 0 AM EST us Jordyn Mary NP LAB BLOOD ORDERABLES Final Resul t Performing Organization Address City/State/[facility] Co de Phone Number [facility] [address] from Last 3 Months or Most Recently Relevant to Health Maintenance Insurance [facility] Care Teams Tire Builder Relationship Specialty Start Date End Date Kerri Cm MD [address] [place] [address] PCP - General Family Medicine 03/26/20
--- OUTSIDE RECORDS SUMMARY | 2024-03-28 14:11 | XMS_ITS | Encounter Summary ---
Author Organization [employer] [facility] Address [address] [facility] 7t [place] [address] Care Team Providers Care Java Spring Developer Name Role Phone Kerri Cm MD Primary Care Provider + Encounter Details Date Type Department Care Team (Late st Contact Info) Description 05/20/2022 Abstract [facility] DIABETES/NUTRITION [address] [place] [address] Kerri Cm MD [address] [place] [address] Social History Tobacco Use Types Packs/Day Years Used Date Smoking Tobacco: Never Smokeless Tobacco: Never Alcohol Use Standard Drinks/Week Comments Never 0 (1 standard drink = 0.6 oz pur e alcohol) PHQ-2 Answer Date Recorded Patient Health Questionnaire-2 Score 0 05/16/2022 Depression Answer Date Recorded Patient Health Questionnaire-9 Score 6 02/15/2022 Depression Answer Date Recorded Patient Health Questionnaire-2 Score 0 05/16/2022 Comments Unknown Sex and Gender Information Value Date Recorded Sex Assigned at Female 12/20/2021 10:14 AM EDT Legal Sex Female 10:14 AM EDT Gender Identity Female 12/20/2021 10:14 AM EDT Sexual Orientation Choose not to disclose 2021 10:14 AM EDT COVID-19 Exposure Response Date Recorded In the last 10 days, have yo u been in contact with someone who was confirmed or suspected to have Coronavirus/COVID-19? No / Unsure 05/16/2022 9:07 AM EDT documented as of this encounter Plan of Treatment Not on file documented as of this encounter Visit Diagnoses Not on filedocumented in this encounter Additional Health Concerns Assessment Noted Time PHQ-9 Depression Total Score: 6 02/16/20 22 10:24 AM EST documented as of this encounter Care Teams Java Spring Developer Relationship Specialty Start Date End Date Kerri Cm MD [address] [place] [address] PCP - General Family Medicine 03/26/20 documented as of this encounter
--- OUTSIDE RECORDS SUMMARY | 2024-03-28 14:11 | XMS_ITS | Encounter Summary ---
Author Organization [employer] Address [address] [facility] 7t [place] [address] Care Team Providers Care Drawing In Machine Tender Helper Name Role Phone Kerri Cm MD Primary Care Provider + Reason for Visit * Reason Onset Date Comments Nurse Triage 12/30/2022 Encounter Details Date Type Department Care Team ([facility] st Contact Info) Description 12/30/2022 Telephone [facility] MEDICINE [address] [place] [address] Kerri Cm MD [address] [place] [address] Nurse Triage Social History Tobacco Use Types Packs/Day Years [...] the past 12 months, has t he Conservis, gas, oil or water company threatened to [...] encounter Miscellaneous Notes * Telephone Encounter - Sandra Meier RN - 12/30/2022 11:58 AM EST Triage call with [employer] Dec[employer]ator ID [id number] Pt reports high blood sugars. BS before bed last night 12/29 190 and this morning before breakfast 150. Pt reports drinking more water. Pt was seen OV 12/26 and metformin was discontinued due to nausea/ vomiting. Pt has had any further N/V but is concerned that BS is too high. Pt reports thirstiness,headache and dizziness at times. Pt leaves on vacation Monday01/04/23 and is concerned that during vacation the BS will get too high. Pt is requesting to have metformin prescribed again.. Home care reviewed with Pt and Pt agreed with this disposition. Advised will send this triage to PCP and nursing team for follow up by Tuesday 01/02 and Pt instructed to continue to monitor BS before bed and b efore breakfast and increase fluid intact and Pt agreed with this plan. Protocol Used: Diabetes - High Blood Sugar (Adult) Protocol-Based Disposition: Home Care Positive Triage Question: * Blood glucose 70 - 240 mg/dL (3.9 -13.3 mmol/L) * All higher-acuity triage questions were negative Care Advice Discussed: * High Blood Sugar (Hyperglycemia) * Treatment - Liquids * Measure and Record Your Blood Glucose * Reasons To Call Back - Blood glucose over 300 mg/dL (16.7 mmol/L), two or more times in a row. - Urine ketones become moderate or large (or more than 1+); if you check blood ketones, blood ketone test is over 1.4 mmol/L - Vomiting lasting over 4 hours or unable to drink any fluids - Rapid breathing occurs - You have more questions - You become worse * Telephone Encounter - Kimi Randell - 12/30/2022 10:54 AM EST Symptom: High Blood Sugar - Caller Reports Outcome: Schedule an urgent appointment (within 1 hour) or talk to a nurse or provider soon Reason: Getting worse, pt was discontinued metformin on 12/26 The caller accepted this outcome Please contact pt at [phone] (spot welder needed) documented in this encounter Plan of Treatment Not on file documented as of this encounter Visit Diagnoses Not on filedocumented in this encounter Additional Health Concerns Assessment Noted Time PHQ-9 Depression Total Score: 6 02/16/20 22 10:24 AM EST documented as of this encounter Care Teams Drawing In Machine Tender Helper Relationship Specialty Start Date End Date Kerri Cm MD [address] [place] [id number] PCP - General Family Medicine 03/26/20 documented as of this encounter
--- OUTSIDE RECORDS SUMMARY | 2024-03-28 14:11 | XMS_ITS | Encounter Summary ---
Author Organization [employer] Address [address] [facility] 7t [place] [address] Care Team Providers Care Physician Ophthalmologist Name Role Phone Kerri Cm MD Primary Care Provider + Reason for Visit * Reason Comments Med Refill Encounter Details Date Type Department Care Team ([facility] st Contact Info) Description 12/29/2022 Refill [facility]INE [address] [place], [place] [phone] Kerri Cm MD [address] [place], [place] [phone] Gastroesophageal reflux disease, unspecified whether esophagitis present Social History Tobacco Use Types Packs/Day Years [...] documented as of this encounter Visit Diagnoses Diagnosis Gastroesophageal reflux disease, unspecified whether esophagitis present documented in this encounter Additional Health Concerns Assessment Noted Time PHQ-9 Depression Total Score: 6 02/16/20 22 10:24 AM EST documented as of this encounter Care Teams Physician Ophthalmologist Relationship Specialty Start Date End Date Kerri Cm MD [address] [place] [address] PCP - General Family Medicine 03/26/20 documented as of this encounter
--- OUTSIDE RECORDS SUMMARY | 2024-03-28 14:11 | XMS_ITS | Encounter Summary ---
Author Organization [employer] Address [address] [facility] 7t [place] [address] Care Team Providers Care Bi Solutions Architect Name Role Phone Kerri Cm MD Primary Care Provider + Encounter Details Date Type Department Care Team (Late st Contact Info) Description 03/04/2024 Orders Only GENERIC EXTERNAL DATA DEPARTMENT Provider, Generic External Data Social History Tobacco Use Types Packs/Day Years [...] on file documented as of this encounter Procedures Procedure Name Priority Date/Time Associated Diagnosis Comments LH Routine 03/04/2024 1:11 PM EST FSH Routine 03/04/2024 1:11 PM EST documented in this encounter Results * LH (03/04/2024 1:11 PM EST) Lutenizing Hormone 17.4 mIU/mL [facility] Comment:Reference Range Foll icular Phase 1.9-12.5 Mid-Cycle Peak 8.7-76.3 Luteal Phase 0.5-16.9 Postmenopausal 10.0-54.7THIS TEST WAS PERFORMED AT:[facility] [place] [id number] CARRANZA MD 03/04/2024 1:11 PM EST 03/04/2024 1:11 PM EST us Generic External Data Provider LAB BLOOD ORDERAB LES Final Result [facility] [address] [place] [phone] * FSH (03/04/2024 1:11 PM EST) Follicle Stimulating Hormone 67.4 mIU/mL [facility] Comment:Reference Range Foll icular Phase 2.5-10.2 Mid-cycle Peak 3.1-17.7 Luteal Phase 1.5- 9.1 Postmenopausal 23.0-116.3THIS TEST WAS PERFORMED AT:[facility] [place] [phone] CARRANZA MD 03/04/2024 1:11 PM EST 03/04/2024 1:11 PM EST us Generic External Data Provider LAB BLOOD ORDERAB LES Final Result [facility] [address] [place] [phone] documented in this encounter Visit Diagnoses Not on filedocumented in this encounter Additional Health Concerns Assessment Noted Time PHQ-9 Depression Total Score: 5 02/09/20 24 7:59 AM EST documented as of this encounter Care Teams Bi Solutions Architect Relationship Specialty Start Date End Date Kerri Cm MD [address] [place] [phone] PCP - General Family Medicine 03/26/20 documented as of this encounter
== END | disposition home or self-care (01) ==
PROVIDERS: PCP Internal Medicine; Visit Provider Obstetrics & Gynecology
CPT/HCPCS: 99213

== ENCOUNTER 2024-05-12 21:47 | Emergency (ER) | payer OTHER, SELFPAY ==
--- NOTE | 2024-05-12 | ECG_ITS ---
Test Reason : CHEST PAIN Blood Pressure : */* mmHG Vent. Rate : 91 BPM Atrial Rate : 91 BPM P-R Int : 152 ms QRS Dur : 78 ms QT Int : 376 ms P-R-T Axes : 78 17 47 degrees QTcB Int : 462 ms Poor data quality, interpretation may be adversely affected Normal sinus rhythm Normal ECG When compared with ECG of 27-Feb-2020 23:19, No significant change was found Referred By: Cyril Bolden Electronically Signed By: RICARDA RAY MD
--- NOTE | ~2024-05-12 | XR_ITS ---
CLINICAL HISTORY: chest pain Chest X-ray, 2 Views COMPARISON: None FINDINGS: No consolidation. No pleural effusion. No pneumothorax. No cardiomegaly. No acute fracture. IMPRESSION: No acute findings. This document has been electronically signed by: Shaji Betts MD on 05/12/2024 22:45:44
--- NOTE | 2024-05-12 21:50 | ED.GENADULT ---
HPI - General Adult General Chief complaint: Chest Pain Stated complaint: chest pain, r arm/shoulder Time Seen by Provider: 05/12/24 21:49 History of Present Illness ED Provider: Kimi BOWEN narrative: The patient is a 53-year-old female with a history of type 2 diabetes. She says that earlier today, approximately around 10:30 AM, she started to experience pain in her chest that has been persistent since then. She feels the pain in her anterior chest and also in her back. She also feels it somewhat in the right arm and shoulder. She also feels somewhat short of breath. She says the pain is worse when she takes a deep breath. She also feels the pain across her upper abdomen. However she feels the pain in her chest is worse than in her abdomen. She has not had any fever, sweats, chills. No significant cough. No nausea or vomiting. No diaphoresis. No headache. The pain is worse when she moves her arms and also worse with changing positions. She denies any injuries recently. She denies any activities that might have strained her upper body. Related Data Home Medications ?Medication ?Instructions ?Recorded ?Confirmed albuterol sulfate 90 mcg/actuation 1 inh inhalation QID 03/19/20 09/12/22 aerosol inhaler (ProAir HFA) cholecalciferol (vitamin D3) 50 50 mcg PO DAILY 03/19/20 09/12/22 mcg (2,000 unit) capsule epinephrine 0.3 mg/0.3 mL 0.3 mg IM Q15M PRN 03/19/20 09/12/22 injection, auto-injector (EpiPen) sennosides 8.6 mg capsule (senna) 8.6 mg PO BEDTIME PRN 03/23/20 07/01/21 divalproex 500 mg tablet,delayed 500 mg PO BID 04/01/20 09/12/22 release acetaminophen 500 mg tablet 500 mg PO Q4H PRN pain 07/01/21 09/12/22 amitriptyline 100 mg tablet 100 mg PO BEDTIME 07/01/21 09/12/22 gabapentin 300 mg capsule 600 mg PO BEDTIME 07/01/21 09/12/22 ibuprofen 600 mg tablet 600 mg PO TID 07/01/21 09/12/22 meclizine 25 mg tablet 25 mg PO BEDTIME 07/01/21 09/12/22 topiramate 100 mg tablet 50 mg PO BID 07/01/21 09/12/22 atorvastatin 40 mg tablet 40 mg PO DAILY 12/08/22 blood sugar diagnostic (FreeStyle #10 ea 12/08/22 Lite Strips) fluticasone propionate 50 1 spray intranasal DAILY 12/08/22 mcg/actuation nasal spray,suspension lancets 28 gauge (FreeStyle #100 ea 12/08/22 Lancets) metformin 500 mg tablet,extended 500 mg PO DAILY 12/08/22 release 24 hr Previous Rx's ?Medication ?Instructions ?Recorded pantoprazole 20 mg tablet,delayed 20 mg PO BID #60 tabs 10/29/21 release medroxyprogesterone 150 mg/mL 150 mg IM Q12W #1 mL 12/08/22 intramuscular suspension (Depo-Provera) medroxyprogesterone 150 mg/mL 150 mg IM [id number] #1 mL 03/04/24 intramuscular suspension (Depo-Provera) acetaminophen 500 mg capsule 1,000 mg (2 x 500 mg) PO Q8H PRN 05/12/24 fever or pain #14 caps ibuprofen 400 mg tablet 400 mg PO Q6H PRN pain #14 tabs 05/12/24 Allergies Allergy/AdvReac Type Severity Reaction Status Date / Time seafood Allergy Severe Anaphylaxis Verified 05/12/24 21:59 Review of Systems Review of Systems: Yes all other systems are reviewed and are negative [facility] Past Medical History Medical History Chest pain Dyspnea on exertion COVID-19 GERD (gastroesophageal reflux disease) Surgical History No pertinent past surgical history Family History Family History Mother Diabetes HTN (hypertension) Hypercholesteremia Stroke Father Diabetes HTN (hypertension) Hypercholesteremia Kidney disease Pulmonary disease Social History Social History Household Members: Family Alcohol intake: never Patient Tobacco Use Status: Never used Tobacco Advance Directives: No Advance Directives Information Provided: No Do you have a plan to hurt others: No Plan Current occupational status: employed Current occupation: [employer] Care Physical Exam ED Vital Signs: Vital Signs - 24 hr 05/12/24 21:55 Temperature 98.3 F Pulse Rate 90 Respiratory Rate 20 Blood Pressure 145/71 H Pulse Oximetry 98 Oxygen Delivery Method Room Air BMI result Body Mass Index 33.3 Const Other: The patient is a 53-year-old female who was awake and alert and looks mildly uncomfortable but not acutely ill. Orientation/consciousness: patient oriented x3 HENMT Other: Face is symmetrical. Mucous membranes moist. Eyes General: appearance normal, both eyes and all related structures Neck Neck: Yes normal visual inspection, Yes full ROM and Yes no JVD Chest Other: There is chest wall tenderness with palpation of the parasternal chest areas. This seems to reproduce her pain. Resp Effort & Inspection: normal respiratory effort Auscultation: clear to auscultation bilaterally Cardio Rate: regular rate Rhythm: regular rhythm Heart sounds: S1 normal heart sound present and S2 normal heart sound present GI Other: The patient reports tenderness with palpation of the upper abdomen in the right upper quadrant, epigastrium, and left upper quadrant. Lower abdomen is nontender. Skin Other: Skin is dry and unremarkable General skin exam: no rashes or lesions noted Neuro General: patient oriented x3, moves all extremities, no focal motor deficits and CN's II-XI intact bilaterally Extrem Other: No peripheral edema, no calf swelling or asymmetry, no tenderness Medications Administered Discontinued Medications Generic Name Dose Route Start Last Admin Trade Name Freq PRN Reason Stop Dose Admin Ketorolac Tromethamine 10 mg 05/12/24 22:16 05/12/24 22:27 Ketorolac Tromethamine 15 Mg/Ml Vial IVPUSH 05/12/24 22:17 10 mg ONCE ONE Administration Medical Decision Making Medical Decision Making [facility] Narrative: The patient is a 53-year-old female who presents for evaluation of chest pain that is worse with taking a deep breath and with movements. She presents almost 12 hours after the onset of her symptoms. She has an unremarkable EKG. She has a normal troponin of 3.1. She has a clear chest x-ray. She has a normal D-dimer of 164. She has a normal white count of 9,000 with a differential that shows 49% neutrophils and 38% lymphocytes. She has a physical exam suggestive of chest wall pain. The patient felt better after a dose of ketorolac. I explained to her that I believe she is experiencing chest wall pain. She will be discharged with instructions to use ibuprofen and acetaminophen as needed for discomfort and to follow up with the regular doctor. She should return to the emergency room if worse. Lab Data 05/12/24 22:07 05/12/24 22:07 Labs: Lab Results 05/12/24 05/12/24 Range/Units 22:07 22:29 WBC 9.0 (4.8-10.8) X10*3/uL RBC 4.39 (4.20-5.50) X10*6/uL Hgb 12.6 (12.0-16.0) g/dl Hct 37.3 (37.0-47.0) % MCV 85.0 (80.0-98.0) fL MCH 28.7 (27.0-33.0) pg MCHC 33.8 (31.0-35.0) g/dl RDW 14.0 (11.0-16.0) % Plt Count 331 (160-400) X10*3/uL MPV 10.7 (9.4-12.3) fL Immature Gran % (Auto) 0.3 (0.0-0.4) % Neut % (Auto) 49.3 (45-73) % Lymph % (Auto) 38.3 (20-40) % [place] % (Auto) 8.3 (2-11) % Eos % (Auto) 3.0 (0-4) % Baso % (Auto) 0.8 (0-2) % Lymph # (Auto) 3.5 (1.2-4.9) X10*3/uL [place] # (Auto) 0.8 (0.1-1.2) X10*3/uL Eos # (Auto) 0.3 (0.0-0.4) X10*3/uL Baso # (Auto) 0.1 (0.0-0.2) X10*3/uL Abs Immat Gran (auto) 0.03 (0.00-0.03) X10*3/uL Absolute Neuts (auto) 4.5 (2.0-8.3) x10*3/uL Absolute Nucleated RBC 0.000 (0.0-0.012) X10*3/uL Nucleated RBC % (auto) 0.0 (0.0-0.2) /100WBC D-Dimer High Sensitivty 164 NG/ML Sodium 141 (135-145) mmol/L Potassium 3.6 (3.3-5.1) mmol/L Chloride 110 H (96-108) mmol/L Carbon Dioxide 20 L (22-29) mmol/L Anion Gap 15 (12-20) BUN 15 (9-16) mg/dL Creatinine 0.99 (0.5-1.4) mg/dL Estim Creat Clear Calc 70.5 Estimated GFR 59 Random Glucose 163 H (60-115) mg/dL Calcium 8.6 (8.4-10.2) mg/dL Total Bilirubin 0.2 (0.0-1.0) mg/dL AST 20 (5-31) U/L ALT 24 (0-31) U/L Alkaline Phosphatase 90 (39-117) U/L Troponin I High Sens 3.1 (<3.5-17.0) ng/L Total Protein 7.8 (6.5-8.0) g/dL Albumin 3.8 (3.5-5.0) g/dL Lipase 26 (8-78) U/L Independent Interpretation I performed an independent interpretation of an: EKG Interpretation: EKG at 03/24/1999 shows normal sinus rhythm at 91 beats per minute. No definite acute ischemic changes. No significant change from previous. Discharge Plan Discharge Clinical Impression: Chest wall pain Patient Disposition: Home, Self-Care Additional Instructions: Your testing in the emergency room is very reassuring. There is no sign of a heart attack. There is no sign of a blood clot in your lungs. Your lungs look clear on the chest x-ray. I suspect that the pain is coming from the muscles, the bones, or the cartilage of your chest wall. I think you were experiencing what we call it chest wall pain. This is also sometimes called ?costochondritis. ? You may use ibuprofen and acetaminophen as needed for the pain. I have sent prescriptions for these medications to your pharmacy. Please make a follow up appointment with your regular doctor soon to discuss this further. Return to the emergency room if significantly worse. Prescriptions: New ibuprofen 400 mg tablet 400 mg PO Q6H PRN (Reason: pain) Qty: 14 0RF acetaminophen 500 mg capsule 1,000 mg PO Q8H PRN (Reason: fever or pain) Qty: 14 0RF No Action pantoprazole 20 mg tablet,delayed release (DR/EC) 20 mg PO BID Qty: 60 6RF epinephrine [EpiPen] 0.3 mg/0.3 mL auto-injector 0.3 mg IM Q15M PRN Rx Instructions: for 2 doses cholecalciferol (vitamin D3) 50 mcg (2,000 unit) capsule 50 mcg PO DAILY albuterol sulfate [ProAir HFA] 90 mcg/actuation HFA aerosol inhaler 1 inh inhalation QID senna 8.6 mg capsule 8.6 mg PO BEDTIME PRN divalproex 500 mg tablet,delayed release (DR/EC) 500 mg PO BID ibuprofen 600 mg tablet 600 mg PO TID acetaminophen 500 mg tablet 500 mg PO Q4H PRN (Reason: pain) amitriptyline 100 mg tablet 100 mg PO BEDTIME topiramate 100 mg tablet 50 mg PO BID meclizine 25 mg tablet 25 mg PO BEDTIME gabapentin 300 mg capsule 600 mg PO BEDTIME (DME) FreeStyle Lite Strips Strip See Rx Instructions .ROUTE BID Qty: 10 Rx Instructions: As directed metformin 500 mg tablet extended release 24 hr 500 mg PO DAILY (DME) lancets [FreeStyle Lancets] 28 gauge misc See Rx Instructions .ROUTE BID Qty: 100 Rx Instructions: As directed atorvastatin 40 mg tablet 40 mg PO DAILY fluticasone propionate 50 mcg/actuation spray,suspension 1 spray intranasal DAILY medroxyprogesterone [Depo-Provera] 150 mg/mL suspension 150 mg IM Q12W Qty: 1 5RF medroxyprogesterone [Depo-Provera] 150 mg/mL suspension 150 mg IM [id number] Qty: 1 0RF medroxyprogesterone [Depo-Provera] 150 mg/mL syringe 150 mg IM ONCE Qty: 1 0RF Print Language: Kinyarwanda
[2024-05-12 21:55] VITALS: BP 132/80; BP 145/71; PULSE 90; PULSE 96; RESP 20; TEMP 36.8; O2SAT 100; O2SAT 98; BMI 33.3
[2024-05-12 22:11] LABS: MANUAL DIFF FLAG NO
[2024-05-12 22:15] LABS: Basophils Absolute Auto 0.1 X10*3/uL (0.0-0.2); Basophils Percent Auto 0.8 % (0-2); Eosinophils Absolute Auto 0.3 X10*3/uL (0.0-0.4); Hematocrit 37.3 % (37.0-47.0); Hemoglobin 12.6 g/dl (12.0-16.0); Imm Gran Abs Auto 0.03 X10*3/uL (0.00-0.03); Imm Gran Pct Auto 0.3 % (0.0-0.4); Lymphocytes Absolute Auto 3.5 X10*3/uL (1.2-4.9); Lymphocytes Percent Auto 38.3 % (20-40); Mean Corpuscular HGB Conc 33.8 g/dl (31.0-35.0); Mean Corpuscular Hemoglobin 28.7 pg (27.0-33.0); Mean Platelet Volume 10.7 fL (9.4-12.3); Monocytes Absolute Auto 0.8 X10*3/uL (0.1-1.2); Monocytes Percent Auto 8.3 % (2-11); Neutrophils Absolute Auto 4.5 x10*3/uL (2.0-8.3); Neutrophils Percent Auto 49.3 % (45-73); Platelet Count 331 X10*3/uL (160-400); Red Blood Count 4.39 X10*6/uL (4.20-5.50)
--- NOTE | 2024-05-12 22:19 | PC.NURSE ---
pt biba from home, a&ox4, respirations even and unlabored. pt reporting onset of left sided chest pain, radiating into the bilateral arms and shortness of breath starting this am. pt denies n/v/d. pt given 324 asprin in ambulance with minimal releif. at bedside. 20G placed in left ac. nsr on tele.
[2024-05-12] MEDS: Ketorolac Tromethamine 15 MG/ML VIAL 10 MG IVPUSH (22:27)
[2024-05-12 22:30] LABS: Alanine Aminotransferase 24 U/L (0-31); Albumin Level 3.8 g/dL (3.5-5.0); Anion Gap 15 (12-20); Aspartate Amino Transferase 20 U/L (5-31); Bilirubin Total 0.2 mg/dL (0.0-1.0); Blood Urea Nitrogen 15 mg/dL (9-16); Calcium 8.6 mg/dL (8.4-10.2); Carbon Dioxide 20 mmol/L (22-29); Chloride 110 mmol/L (96-108); Creatinine Clr Calc Pharmacy 70.5; Estimated Glomerular Filt Rate 59; Glucose Random 163 mg/dL (60-115); Lipase 26 U/L (8-78); Potassium 3.6 mmol/L (3.3-5.1); Sodium 141 mmol/L (135-145); Total Protein 7.8 g/dL (6.5-8.0)
[2024-05-12 22:36] LABS: Troponin-I High Sensitivity 3.1 ng/L (<3.5-17.0)
[2024-05-12 22:42] LABS: Alkaline Phosphatase 90 U/L (39-117)
[2024-05-12 22:44] LABS: D Dimer High Sensitivity 164 NG/ML
[2024-05-13 00:33] LABS: Influenza A PCR NEGATIVE (Negative); Influenza B PCR NEGATIVE (Negative); Resp Syncy Virus RNA Qual PCR NEGATIVE (Negative); SARS COV2 PCR INHOUSE NEGATIVE (Negative)
[2024-05-13 01:45] VITALS: BP 149/98; PULSE 84; RESP 16; TEMP 36.8; O2SAT 94
[2024-05-13 01:47] VITALS: BP 149/98; PULSE 84; RESP 16; TEMP 36.8; O2SAT 94
== END 2024-05-13 01:00 | disposition home or self-care (01) ==
PROVIDERS: Emergency Provider Emergency Medicine
DX: R07.9 Chest pain, unspecified (principal); E11.9 Type 2 diabetes mellitus without complications; R06.02 Shortness of breath; Z03.818 Encounter for observation for suspected exposure to other biological agents ruled out
CPT/HCPCS: 0241U; 36415; 71046; 80053; 83690; 84484; 85025; 85379; 93005; 96374; 99284; 99285; J1885

== ENCOUNTER → 2024-05-12 22:00 | Outpatient (BNV) | payer OTHER, SELFPAY | PROVIDERS: Emergency Provider Emergency Medicine; Visit Provider Internal Medicine Cardiovascular Disease | DX: R07.9 Chest pain, unspecified (principal) | CPT/HCPCS: 93010 ==

== ENCOUNTER → 2024-05-12 22:17 | Outpatient (BNV) | payer OTHER, SELFPAY | PROVIDERS: Emergency Provider Emergency Medicine; Visit Provider Radiology Diagnostic Radiology | DX: R07.9 Chest pain, unspecified (principal) | CPT/HCPCS: 71046 ==

== ENCOUNTER 2024-10-14 08:10 | Outpatient (REF) | payer OTHER, SELFPAY ==
--- OUTSIDE RECORDS SUMMARY | 2024-10-14 08:24 | XMS_ITS | Encounter Summary ---
Author Organization [employer] Address [address] [facility] 7t [place] [address] Care Team Providers Care Photograph Tinter Name Role Phone Kerri Cm MD Primary Care Provider + Reason for Visit * Reason Onset Date Comments Med Refill 01/05/2024 Encounter Details Date Type Department Care Team ([facility] st Contact Info) Description 01/05/2024 Telephone [facility] [address] [place] [address] Kerri Cm MD [address] [place] [address] Med Refill Social History Tobacco Use Types [...] 8:55 AM EST Medication was sent to [facility] #[id number] on 12/19/23 #90 with 3 refills. * Telephone Encounter - Jerilyn Denney - 01/05/2024 8:13 AM EST TC from pt requesting medication refill. Medications needing refill : pantoprazole (ProtoNix) 20 MG EC tablet To be sent to: [id number] AT [facility] documented in this encounter Plan of Treatment Upcoming Encounters Date Type Department Care Team (Late st Contact Info) Description 11/20/2024 9:30 AM EDT Office Visit [facility] [address] [place] [address] Nuha Augustine, OD [address] [place] [address] documented as of this encounter Visit Diagnoses Not on filedocumented in this encounter Additional Health Concerns Assessment Noted Time PHQ-9 Depression Total Score: 6 02/16/20 22 10:24 AM EST documented as of this encounter Care Teams Photograph Tinter Relationship Specialty Start Date End Date Kerri Cm MD [address] [place] [id number] PCP - General Family Medicine 03/26/20 documented as of this encounter
[2024-10-14 11:41] LABS: Alanine Aminotransferase 32 U/L (0-31); Albumin Level 4.0 g/dL (3.5-5.0); Alkaline Phosphatase 88 U/L (39-117); Anion Gap 12 (12-20); Aspartate Amino Transferase 32 U/L (5-31); Blood Urea Nitrogen 15 mg/dL (9-16); Calcium 8.9 mg/dL (8.4-10.2); Carbon Dioxide 22 mmol/L (22-29); Chloride 109 mmol/L (96-108); Cholesterol 240 mg/dL (<200); Estimated Glomerular Filt Rate 55; HDL Cholesterol 49 mg/dL (>40); Potassium 3.8 mmol/L (3.3-5.1); Sodium 139 mmol/L (135-145); Total Protein 7.6 g/dL (6.5-8.0); Triglycerides 136 mg/dL (<150)
[2024-10-14 11:48] LABS: HBS Num1 0.37 mIU/mL (0-7.99); HBc Num1 0.12 S/CO (0.00-0.79); HBsAGNum1 0.47 S/CO (0.00-0.99); Hepatitis A Antibody IgM 0.25 Index (0-0.79); Hepatitis B Surface Antigen Negative (Negative); ~HepC Num1 0.09 S/CO (0.00-0.79); ~Hepatitis A Antibody IgM Nonreactive (Nonreactive); ~Hepatitis B Surface Antibody NONREACTIVE (Nonreactive); ~Hepatitis C Antibody Nonreactive (Nonreactive)
[2024-10-14 12:09] LABS: Folate 6.3 ng/mL (> or = 4.0); Vitamin B12 294 pg/mL (200-900)
[2024-10-14 12:45] LABS: Reflex LDLD? No
[2024-10-17 12:04] LABS: TS Negative Control Passed; TS Panel A 0; TS Panel B 1; TS Positive Control Passed; TSpotTB Negative (Negative)
== END 2024-10-14 08:11 | disposition home or self-care (01) ==
LOC: HO.HHCL 08:10
PROVIDERS: PCP Internal Medicine; Visit Provider Internal Medicine
DX: Z11.1 Encounter for screening for respiratory tuberculosis (principal); Z11.59 Encounter for screening for other viral diseases; Z02.0 Encounter for examination for admission to educational institution; E11.9 Type 2 diabetes mellitus without complications; I10 Essential (primary) hypertension; E55.9 Vitamin D deficiency, unspecified; K21.9 Gastro-esophageal reflux disease without esophagitis
CPT/HCPCS: 36415; 80053; 80061; 82306; 82570; 82607; 82746; 84443; 86481; 86704; 86706; 86709; 86803; 87340